=== PATIENT | female | born 2000 | race Caucasian/White ===

== ENCOUNTER 2019-03-18 14:41 | Emergency (ER) | payer MEDICAID, SELFPAY ==
[2019-03-18 14:44] VITALS: BP 145/55; PULSE 88; RESP 16; TEMP 36.3; O2SAT 99; BMI 18.8
--- NOTE | 2019-03-18 15:24 | US_ITS ---
STUDY: FIRST TRIMESTER OBSTETRICAL ULTRASOUND REASON FOR EXAM: Female, 18 years old. dating. LMP: 01/21/19 TECHNIQUE: Transvaginal TECHNICAL QUALITY: Adequate. PRIOR ULTRASOUND: None. FINDINGS: There is no demonstrated intrauterine gestational sac. There is no demonstrated yolk sac. The placenta is non-visualized. There is no demonstrated embryo ( pole). The estimated gestation age (EGA) by LMP is 8 weeks, 0 days. The uterus measures 7.5 x 4.6 x 3.3. There is no demonstrated uterine fibroid. The cervix is closed. Endometrium measures 1.2 cm. The right ovary measures 3.8 x 3.5 x 3.0 cm. There is a 2.1 cm cyst. The left ovary measures 3.1 x 2.4 x 1.7 cm. There is no left ovarian cyst. There is no visualized left adnexal mass or complex lesion. There is no fluid in the cul de sac. US/Transvaginal w/Preg US IMPRESSION: No sonographic evidence of intra or extrauterine gestation. Endometrium measures 1.2 cm. Simple right ovarian cyst No demonstrated free fluid Electronically Signed: David Vanegas MD at 16:51 EDT , Service support ,
[2019-03-18 16:30] LABS: hCG Titer Quant., Serum 333 mIU/mL (<9 non-preg)
--- NOTE | 2019-03-18 16:31 | ED.VISSUMM ---
- ER Visit Summary Date of Service: 03/18/19 Chief Complaint: History of Present Illness: The patient is a 18 F [facility] She reports that her last period was in January. She has never been previously. She denies any pain. No vaginal bleeding or discharge. States that she was sent here by [facility] to see how far along she is. Physical Examination: Vitals: Stable. Afebrile. General: Well-nourished and well-developed. Head: Normocephalic atraumatic. Neck: Supple, no lymphadenopathy. No JVD. Nontender. Cardiovascular: Regular rate and rhythm. No murmurs. Respiratory: No respiratory distress. Clear to auscultation bilaterally. Abdominal: Soft, nontender, nondistended, normal bowel sounds. No guarding, rebound, or peritoneal signs. Back: Nontender. Extremities: Nontender, no edema. Skin: Normal color, no rash. Neurologic: Alert and oriented ?3. Cranial nerves II through XII are intact. Normal strength and sensation. Psych: Normal affect. Test Results: Quant is 333. Clinical Impression(s) from Imaging Studies Obstetrics Ultrasound 03/18/19 15:24 IMPRESSION: No sonographic evidence of intra or extrauterine gestation. Endometrium measures 1.2 cm. Simple right ovarian cyst No demonstrated free fluid Electronically Signed: David Vanegas MD at 16:51 EDT , Service support , Emergency Department Course and Treatment: Patient refused pain or nausea medications. She is resting comfortably. Treatment Plan: The patient was discussed with Dr. Navarro. She will be discharged instructions to follow-up in 2 days for repeat quant. Return to the emergency department for any worsening symptoms. Disposition: To home in improved and stable condition. Impression: 1. Early . This note was generated with [employer] software. It may contain incorrect words, spelling, and punctuation that were not noted in review of the chart prior to signing ED Disposition - Plan for ED Patient: Instructions: ED Abdominal Pain Rule Out Ectopic Referrals: Skye Candelaria MD [STAFF PHYSICIAN] - 2 Days
[2019-03-18 17:26] VITALS: BP 111/74; PULSE 74; RESP 16; TEMP 37.2; O2SAT 100
== END 2019-03-18 17:26 | disposition home or self-care (01) ==
LOC: ED 15:58
PROVIDERS: Emergency Provider Emergency Medicine; Family Provider Pediatrics; PCP Pediatrics
DX: Z34.90 Encounter for supervision of normal pregnancy, unspecified, unspecified trimester (principal); N83.201 Unspecified ovarian cyst, right side
CPT/HCPCS: 76817; 84702; 99282

== ENCOUNTER → 2019-03-20 11:04 | Outpatient (CLI) | payer MEDICAID, SELFPAY ==
[2019-03-18 14:44] VITALS: BMI 18.8
[2019-03-20 11:52] LABS: hCG Titer Quant., Serum 673 mIU/mL (<9 non-preg)
== END ==
PROVIDERS: Family Provider Pediatrics; PCP Pediatrics; Referring Provider Obstetrics & Gynecology; Visit Provider Obstetrics & Gynecology
DX: O20.0 Threatened abortion (principal); Z3A.00 Weeks of gestation of pregnancy not specified
CPT/HCPCS: 36415; 84702

== ENCOUNTER → 2019-03-26 | Outpatient (CLI) | payer MEDICAID, SELFPAY ==
[2019-03-26 16:42] VITALS: BMI 18.8
[2019-03-26 18:19] LABS: hCG Titer Quant., Serum 6407 mIU/mL (<9 non-preg)
== END | disposition home or self-care (01) ==
LOC: LAB 17:12
PROVIDERS: Family Provider Pediatrics; PCP Pediatrics; Referring Provider Obstetrics & Gynecology; Visit Provider Obstetrics & Gynecology
DX: Z34.90 Encounter for supervision of normal pregnancy, unspecified, unspecified trimester (principal)
CPT/HCPCS: 36415; 84702

== ENCOUNTER 2021-03-02 17:17 | Emergency (ER) | payer MEDICAID, SELFPAY ==
[2019-03-26 16:42] VITALS: BMI 18.8
[2021-03-02 17:17] VITALS: BP 138/63; PULSE 80; RESP 16; TEMP 36.2; O2SAT 97; BMI 23.9
--- NOTE | 2021-03-02 17:23 | NURSING ---
NO OLD EKGS
--- NOTE | 2021-03-02 17:30 | EKG12_ITS ---
Test Reason : CHEST PAIN Blood Pressure : / mmHG Vent. Rate : 075 BPM Atrial Rate : 075 BPM P-R Int : 138 ms QRS Dur : 106 ms QT Int : 366 ms P-R-T Axes : 068 096 046 degrees QTc Int : 408 ms Normal sinus rhythm with sinus arrhythmia Rightward axis Incomplete right bundle branch block Borderline ECG Confirmed by TOMAS DOWELL, SYDNI ([id number]), editor map ADRY FLORES ([id number]) on 03/03/2021 12:55:11 PM Referred By: TERESA Confirmed By:SYDNI MARIN MD
--- NOTE | 2021-03-02 17:31 | ED.VISSUMM ---
- ER Visit Summary Date of Service: 03/02/21 Chief Complaint: [Chest pain ] History of Present Illness: The patient is a 20 F [presents to the emergency department with intermittent episodes of chest discomfort that started 3 months ago. Patient states that several times throughout the day she will feel like she cannot catch her breath like if there were a hose that was kinked in her chest. Patient states oftentimes symptoms are worse before she goes to bed at night. Oftentimes she feels like her heart is racing but she has not actually taken her pulse. She has had no syncopal episodes. She describes a pressure sensation to her chest like somebody's pushing down on her chest. Patient also complains of exertional dyspnea. She does state that she has been under a lot of stress but will not elaborate further. Patient denies any illicit drug use. She denies cocaine abuse. No recent travel or surgery. No history of PE or DVT. No family history of sudden cardiac . Patient denies recent illness or COVID-19 exposures. She has never been diagnosed with COVID-19.] Physical Examination: HEENT-PERRLA, EOMI. Cardiovascular-heart is regular rate and rhythm without murmur. No rubs or clicks noted. Lung exam-clear to auscultation bilaterally. No rales or wheezes noted. No tachypnea. No excess remote use retractions. Abdomen exam-soft and nontender to palpation. Normoactive bowel sounds. Extremities-intact x4 with normal pulses and normal strength noted. No edema.] Test Results: [EKG obtained arrival shows sinus rhythm with a ventricular rate of 75 bpm with no acute ST segment changes noted. CBC with differential was normal. Sed rate was 1. Troponin less than 0.015. Chemistries unremarkable. D-dimer is less than 0.27. hCG was negative. Chest x-ray 1 view obtained interpreted by myself as no acute disease process/normal. Radiologist in agreement.] Emergency Department Course and Treatment: [IV line established on arrival. Patient placed on a manager cardiac cath.] Treatment Plan: [This point etiology of patient's chest pain unclear although I suspect likely an anxiety component. I recommended follow-up with primary care physician assembler ping pong table for no doc. I will write her for as needed Ativan as needed. Advised to return if worsening pain, increasing shortness of breath, or condition should worsen anyway.] Disposition: [Discharged home in stable condition] Impression: [Chest pain-etiology uncertain Anxiety] This note was generated with [employer] dictation software. It may contain incorrect words, spelling, and punctuation that were not noted in review of the chart prior to signing ED Disposition - Plan for ED Patient: Referrals: NOT,DEFINED [NON-STAFF] -
[2021-03-02 17:53] LABS: Absolute Lymphocyte Count 2.68 X10^3/uL (0.83-4.51); Absolute Neutrophil Count 6.1 X10^3/uL (2.0-7.7); Basophil# 0.01 X10^3/uL; Basophil% 0.1 % (0-1); Eosinophil# 0.03 X10^3/uL; Eosinophils% 0.3 % (0-5); Hematocrit 45.7 % (37-47); Hemoglobin 15.4 g/dL (12.0-15.0); Lymphocyte # 2.68 X10^3/ul (4.0); Lymphocyte % 28.6 % (19-41); Mean Corp Hgb Conc 33.7 g/dL (32-36); Mean Corpuscular Hgb 30.5 pg (27.0-32.0); Mean Corpuscular Volume 90.5 fL (81-99); Mean Platelet Vol. 9.8 fl (6.2-12.0); Monocyte# 0.53 X10^3/uL; Monocyte% 5.7 % (0-10); NRBC Flagged by Analyzer 0 % (0-5); Neutrophil # 6.09 X10^3/uL (2.7-7.7); Platelet Count 263 K/mm3 (150-450); RBC Distribution Width CV 11.7 % (11.6-14.6); Red Blood Count 5.05 M/mm3 (4.2-5.4); White Blood Count 9.4 K/mm3 (4.4-11.0)
--- NOTE | 2021-03-02 18:02 | RAD_ITS ---
STUDY: X-RAY CHEST REASON FOR EXAM: Female, 20 years old. Chest pain. TECHNIQUE: Single AP portable view of the chest. COMPARISON: None. FINDINGS: The lungs are clear and expanded. There is no demonstrated pleural abnormality. Normal size heart. Normal mediastinum and valentin. Normal visualized pulmonary arteries. Normal visualized aortic arch and descending thoracic aorta. Normal visualized thoracic spine. Normal visualized ribs, clavicles, and shoulders. There is no demonstrated abnormality of the visualized soft tissue structures of the upper abdomen. RAD/Chest 1 View (Portable) IMPRESSION: Normal x-ray examination of the chest. Electronically Signed: Evaristo Simpson DO at 18:12 EDT Tel [phone], Service support ,
[2021-03-02 18:05] LABS: Erythrocyte Sedimentation Rate 1 mm/hr (0-30)
[2021-03-02 18:07] LABS: Internal QC Validated? YES +Cl - CLEAR BKGD; Pregnancy, Serum, hCG Quali. NEGATIVE Negative
[2021-03-02 18:08] LABS: Anion Gap 7 (5-15); BUN 9 mg/dL (7-18); BUN/Creat Ratio 10.3 RATIO (10-20); Calcium,Total 9.1 mg/dL (8.5-10.1); Chloride 102 mmol/L (98-107); Creatinine, Serum 0.88 mg/dL (0.55-1.02); D-Dimer Quantitative (DVT/PE) <= 0.27 FEU/ug/m (0.27-0.49); EST Glomerular Filtration Rate 86 mL/min (>60); Est Glom Filt Rate - Afr Amer 104 mL/min (>60); Estimated Creatinine Clearance 82.95 ml/min; Glucose 114 mg/dL (74-106); Potassium 3.2 mmol/L (3.5-5.1); Sodium Level 136 mmol/L (136-145)
--- NOTE | 2021-03-02 18:22 | ED.DEP ---
ED Disposition - Plan for ED Patient: Instructions: ED Chest Pain, Uncertain Cause, ED Panic Attack, ED Anxiety Reaction Prescriptions: Lorazepam [Ativan] 1 mg PO TID PRN #10 tab PRN Reason: Anxiety Prescription Printed Referrals: NOT,DEFINED [NON-STAFF] - Jose Antonio Ibrahim MD [STAFF PHYSICIAN] - 3-5 Days
[2021-03-02 18:37] VITALS: BP 104/68; PULSE 52; RESP 16; O2SAT 99
== END 2021-03-02 18:38 | disposition home or self-care (01) ==
PROVIDERS: Emergency Provider Emergency Medicine
DX: R07.89 Other chest pain (principal); R06.09 Other forms of dyspnea; F41.9 Anxiety disorder, unspecified
CPT/HCPCS: 71045; 80048; 84484; 84703; 85025; 85379; 85652; 93005; 99284; A4216

== ENCOUNTER → 2021-08-29 11:42 | Outpatient (CLI) | payer MEDICAID, SELFPAY ==
[2021-08-29 15:32] LABS: Absolute Lymphocyte Count 2.33 X10^3/uL (0.83-4.51); Basophil# 0.01 X10^3/uL; Basophil% 0.1 % (0-1); Eosinophil# 0.04 X10^3/uL; Eosinophils% 0.6 % (0-5); Hematocrit 43.9 % (37-47); Hemoglobin 14.5 g/dL (12.0-15.0); Lymphocyte # 2.33 X10^3/ul (0.83-4.51); Lymphocyte % 33.8 % (19-41); Mean Corpuscular Hgb 30.1 pg (27.0-32.0); Mean Corpuscular Volume 91.1 fL (81-99); Mean Platelet Vol. 10.1 fl (6.2-12.0); Monocyte# 0.46 X10^3/uL; Monocyte% 6.7 % (0-10); NRBC Flagged by Analyzer 0 % (0-5); Neutrophil # 4.04 X10^3/uL (2.7-7.7); Neutrophil % 58.5 % (47-70); Platelet Count 313 K/mm3 (150-450); Red Blood Count 4.82 M/mm3 (4.2-5.4); White Blood Count 6.9 K/mm3 (4.4-11.0)
[2021-08-29 16:05] LABS: Vitamin D,25 Hydroxy 43.2 ng/mL
[2021-08-29 16:10] LABS: AST(SGOT) 20 U/L (15-37); Alanine Aminotransfer ALT/SGPT 30 U/L (13-56); Albumin, Serum 3.8 g/dL (3.2-5.0); Alkaline Phosphatase 55 U/L (45-117); Anion Gap 11 (5-15); BUN 10 mg/dL (7-18); BUN/Creat Ratio 13.4 RATIO (10-20); Calcium,Total 9.2 mg/dL (8.5-10.1); Chloride 106 mmol/L (98-107); Creatinine, Serum 0.75 mg/dL (0.55-1.02); EST Glomerular Filtration Rate 102 mL/min (>60); Est Glom Filt Rate - Afr Amer 124 mL/min (>60); Free T3 3.3 pg/mL (2.18-3.98); Globulin 3.9 g/dL (2.2-4.2); Glucose 84 mg/dL (74-106); Protein, Total 7.7 g/dL (6.4-8.2); Sodium Level 141 mmol/L (136-145); T4 Free Direct 0.93 ng/dL (0.76-1.46); Thyroid Stim Hormone (TSH) 2.57 uIU/mL (0.358-3.74)
== END ==
PROVIDERS: PCP Internal Medicine; Referring Provider Internal Medicine; Visit Provider Internal Medicine
DX: F41.9 Anxiety disorder, unspecified (principal)
CPT/HCPCS: 36415; 80053; 82306; 84439; 84443; 84481; 85025

== ENCOUNTER 2022-04-06 15:30 | Outpatient (RCR) | payer MEDICAID, SELFPAY ==
--- NOTE | 2022-03-26 16:01 | HP.PTEVAL_ITS ---
Patient's Visit Information SMITH LINDSEY is a 21 year old F referred to Physical Therapy by Dr. Imelda Gaviria DC with a diagnosis of BACK PAIN. Date of Evaluation: 03/26/22 Physical Therapist: Lilliana Vale PT, Cert MDT - Visit Plan Frequency: 2-3x /Week Duration: 4-6 Weeks Plan: US, E-STIM WITH MH, STM, TX, POSTURE CORRECTION/STRENGTHENING, INSTRUCTION IN APPROPRIATE BODY MECHANICS AND ACTIVITY MODIFICATIONS. CORINNE UE ROM, STRETCHING AND STRENGTHENING. HEP INSTRUCTION - Subjective Diagnosis: CERVICALGIA (DECREASED LORDOSIS). Work/Leisure: BABYSITTING 3-5 DAYS A WEEK FOR A 1 YEAR OLD AND SOMETIMES A 5 YEAR OLD ALSO. DENTAL ASSISTING DEGREE AND WORKING IN [employer] ABOUT 4 YEARS - STOPPED ABOUT 8 MONTHS AGO. SOCIAL - LIVES WITH BOYFRIEND. Disability: NO. Present symptoms: NECK PAIN. UPPER BACK PAIN. DENIES CORINNE UE SX'S. Present since: ABOUT 6 MONTHS AGO. Pain Scale: Worst - 7/10 Least - 4/10. Currently: 10. Commenced as a result of: NO APPARENT REASON. Symptoms at onset: UPPER BACK AND NECK. Worse: SLEEPING, LEANING ON ARM IN SITTING, DRIVING, SLOUCHING, LIFTING WEIGHTS SOMEWHAT, LOOKING DOWN. Better: SIT UP STRAIGHT, HEATING PAD IN CROCK OF NECK, MUSCLE RELAXERS, MASSAGING IT. Disturbed sleep: YES. Previous history/Previous treatment: ABOUT 2 YEARS AGO NECK AND UPPER BACK PAIN BUT GOT BETTER WITH MASSAGE - RESOLVED AND CAME BACK WORSE 6 MONTHS AGO. This episode: PCP - M. RELAXERS. CHIROPRACTOR X 4-5 VISITS - TEMPORARY RELIEF BUT IT ALWAYS COMES BACK. Dizziness: SOMETIMES WITH HEADACHES. Tinnitis: NO. Nausea: SOMETIMES. Shortness of Breath: YES - INTERMITTENT - CHRONIC - DX'D WITH ANXIETY BUT NOT ON AXIETY MEDS. Difficulty Swollowing: NO. Gait: NORMAL. Accidents: NO. Unexplained weight loss: NO. Imaging: X-RAYS AT THE CH[facility]OPRA[facility] - GOOD BUT NECK IS STARTING TO CURVE AND COULD TURN INTO SCOLIOSIS PER PATIENT REPORT. NO MRI. PMH/Recent major surgery: ANXIETY. - Objective Sitting Posture/Standing Posture: POOR. FH. RS'S. Active Correction of posture: BETTER. Other Observations: INDEP GAIT AND TRANSFERS. Sensory deficit: CORINNE UE LIGHT TOUCH SENSATION GROSSLY INTACT AND SYMMETRICAL. ROM deficit: CORINNE UE'S WNL. Motor deficit: CORINNE UE'S WNL. Dural Signs: NEGATIVE CORINNE UE'S. Cervical Mvmt Loss: Flex: NIL. Pro: NIL. Ext: MIN. Ret: MIN. RSB: MIN. LSB: NIL. R Rot: MIN. L Rot: NIL. Postural strength: POOR. Palpation: TENDERNESS CORINNE UPPER THORACIC AND CERVICAL PARASPINALS AND TRAPS. OTHER: CERVICAL DISTRACTION TESTING - RESULTS IN TEMPORARY PAIN RELIEF. TREATMENT: NEUROMUSCULAR REEDUCATION - RETRAINING OF MVMT AND POSTURE FOR SITTING, LYING AND STANDING ACTIVITIES. GENTLE MANUAL DISTRACTION AND OCCIPITAL RELEASE IN SUPINE. - Balance/Special Test Scores Oswestry Neck Score: 14 - Goals Goal 1:: DECREASE C/O NECK PAIN Goal Time Frame: 4-6 Weeks Goal 2:: IMPROVE LIFTING, READING, SLEEP, DRIVING AND RECREATIONAL FUNCTION Goal Time Frame: 4-6 Weeks Goal 3:: INSTRUCT IN PROPHLAXIS Goal Time Frame: 4-6 Weeks - Anticipated Interventions Patient/Client Instruction: Educate patient on: Condition, Plan of Care, Risk Factors For the Purpose of:: To improve self management Therapeutic Exercise to Include: Strength training, Body mechanics, Postural training, Flexibilty training, Neuromotor development, Scapular Strength/Stabilization For the Purpose of:: To decrease pain, To improve muscle performance and motor function, To increase tolerance to activity/condition/position, To improve ability of physical actions for home/community/work/leisure Manual Therapy Techniques to Include: Soft tissue mobilization For the Purpose of:: To decrease pain, To improve nutrient delivery to tissue TENS: Yes IF ES: Yes Cryotherapy (ice pack, ice massage): Yes Thermo therapy (hot pack): Yes Ultrasound (thermal/non thermal): Yes Intermittent cervical traction: Yes For the Purpose of:: To decrease pain, To decrease swelling/inflammation, To improve nutrient delivery to tissue Thank you for the opportunity to evaluate your patient. For Medicare and Medicare HMO plans, please review the plan of care and approve it. It will need to be FAXED BACK to us at [phone] for Medicare purposes. For Medicare only, by signing this I certify the plan of care. Please let me know if there are questions or concerns regarding this plan of care. Physician Signature: Date:
--- NOTE | 2022-09-12 10:46 | HP.PT.NRP ---
SMITH LINDSEY was seen in my office for initial evaluation on 03/26/22. The following Plan of Care was established for this patient: Initial Frequency: 2-3x /Week Initial Duration: 4-6 Weeks Patient/Client Instruction: Educate patient on: Condition, Plan of Care, Risk Factors For the Purpose of:: To improve self management Therapeutic Exercise to Include: Strength training, Body mechanics, Postural training, Flexibilty training, Neuromotor development, Scapular Strength/Stabilization For the Purpose of:: To decrease pain, To improve muscle performance and motor function, To increase tolerance to activity/condition/position, To improve ability of physical actions for home/community/work/leisure Manual Therapy Techniques to Include: Soft tissue mobilization For the Purpose of:: To decrease pain, To improve nutrient delivery to tissue TENS: Yes IF ES: Yes Cryotherapy (ice pack, ice massage): Yes Thermo therapy (hot pack): Yes Ultrasound (thermal/non thermal): Yes Intermittent cervical traction: Yes For the Purpose of:: To decrease pain, To decrease swelling/inflammation, To improve nutrient delivery to tissue This patient was last seen in our office 04/06/22. Pertinent comments regarding their Physical therapy will appear below: This patient has not returned to Physical Therapy and is appropriate to return to MD for further follow-up as needed. At this point I will be discontinuing this patient from physical therapy. I would be happy to see this patient again in the future if found appropriate by the physician. Thank you! Lilliana Vale, PT, Cert MDT Balance/Gait/Functional tests - Balance/Special Test Scores Oswestry Neck Score: 14
== END 2022-04-06 19:00 | disposition home or self-care (01) ==
LOC: PT 15:30
PROVIDERS: PCP Internal Medicine; Referring Provider Chiropractor; Visit Provider Chiropractor
DX: M54.2 Cervicalgia (principal)
CPT/HCPCS: 97035; 97110; 97112; 97140; 97161

== ENCOUNTER → 2022-09-28 | Outpatient (CLI) | payer MEDICAID, SELFPAY ==
[2022-09-28 16:08] LABS: Absolute Lymphocyte Count 3.54 X10^3/uL (0.83-4.51); Absolute Neutrophil Count 6.1 X10^3/uL (2.0-7.7); Basophil# 0.02 X10^3/uL; Basophil% 0.2 % (0-1); Eosinophil# 0.09 X10^3/uL; Eosinophils% 0.8 % (0-5); Erythrocyte Sedimentation Rate 10 mm/hr (0-30); Hemoglobin 13.9 g/dL (12.0-15.0); Lymphocyte # 3.54 X10^3/ul (0.83-4.51); Lymphocyte % 32.9 % (19-41); Mean Corp Hgb Conc 33.1 g/dL (32-36); Mean Corpuscular Hgb 29.4 pg (27.0-32.0); Mean Platelet Vol. 9.4 fl (6.2-12.0); Monocyte# 0.92 X10^3/uL; Monocyte% 8.6 % (0-10); NRBC Flagged by Analyzer 0 % (0-5); Neutrophil # 6.13 X10^3/uL (2.7-7.7); Neutrophil % 56.9 % (47-70); Platelet Count 350 K/mm3 (150-450); RBC Distribution Width CV 11.4 % (11.6-14.6); RBC Distribution Width SD 36.5 fl (35.1-43.9); Red Blood Count 4.72 M/mm3 (4.2-5.4); White Blood Count 10.8 K/mm3 (4.4-11.0)
[2022-09-28 16:43] LABS: ALB/GLOB Ratio 1.1 RATIO (0.9-2.4); AST(SGOT) 33 U/L (15-37); Alanine Aminotransfer ALT/SGPT 54 U/L (13-56); Albumin, Serum 4.1 g/dL (3.2-5.0); Alkaline Phosphatase 73 U/L (45-117); Anion Gap 8 (5-15); BUN 9 mg/dL (7-18); BUN/Creat Ratio 12.6 RATIO (10-20); CRP < 2.90 mg/L (0.0-3.0); Calcium,Total 9.4 mg/dL (8.5-10.1); Chloride 103 mmol/L (98-107); Creatinine, Serum 0.72 mg/dL (0.55-1.02); EST Glomerular Filtration Rate 106 mL/min (>60); Est Glom Filt Rate - Afr Amer 129 mL/min (>60); Globulin 3.9 g/dL (2.2-4.2); Glucose 84 mg/dL (74-106); LDH 203 U/L (84-246); Potassium 3.6 mmol/L (3.5-5.1); Sodium Level 137 mmol/L (136-145); T4 Free Direct 0.97 ng/dL (0.76-1.46)
[2022-09-30 14:07] LABS: Anti-Centromere B Ab <0.2 AI (0.0-0.9); Anti-Chromatin <0.2 AI (0.0-0.9); Anti-Jo <0.2 AI (0.0-0.9); Anti-Scleroderma-70 AB <0.2 AI (0.0-0.9); RNP Ab <0.2 AI (0.0-0.9); SJOGREN'S Anti-SS-A test < 0.2 AI (0.0-0.9); SJOGREN'S Anti-SS-B test < 0.2 AI (0.0-0.9); Smith Ab <0.2 AI (0.0-0.9)
[2022-10-01 16:09] LABS: Endomysial Antibody IgA Negative (Negative)
[2022-10-02 18:13] LABS: Immunoglobulin A 128 mg/dL (87-352); t-Transglutaminase IgA <2 U/mL (0-3)
[2022-10-02 18:33] LABS: Anti-dsDNA Ab 1 IU/mL (0-9)
[2022-10-08 11:07] LABS: Albumin 3.8 g/dL (2.9-4.4); Alpha-1-Globulins 0.3 g/dL (0.0-0.4); Alpha-2-Globulins 0.8 g/dL (0.4-1.0); Cytoplasmic Ab (C-ANCA) <1:20 titer (Neg:<1:20); Gamma Globulin 1.3 g/dL (0.4-1.8); Immunoglobulin A 137 mg/dL (87-352); Immunoglobulin G 1227 mg/dL (586-1602); Immunoglobulin M 91 mg/dL (26-217); PROEL- TOTAL PROTEIN 7.2 g/dL (6.0-8.5)
[2022-10-11 10:23] LABS: Gastrin, Serum < 10 pg/mL (0-115); Immunoglobulin E 18 IU/mL (6-495); Perinuclear Ab (P-ANCA) <1:20 titer (Neg:<1:20)
== END | disposition home or self-care (01) ==
PROVIDERS: PCP Internal Medicine; Visit Provider Internal Medicine Gastroenterology
DX: K31.9 Disease of stomach and duodenum, unspecified (principal); R10.13 Epigastric pain
CPT/HCPCS: 36415; 80053; 82784; 82785; 82941; 83516; 83615; 84165; 84439; 84443; 84481; 85025; 85652; 86140; 86225; 86235; 86255; 86256; 86334

== ENCOUNTER → 2022-10-01 | Outpatient (CLI) | payer MEDICAID, SELFPAY ==
[2022-10-06 21:01] LABS: Calprotectin, Stool 30 ug/g (0-120); Fats, Neutral Normal (.); Fats, Total Increased (.)
[2022-10-08 16:08] LABS: Dopamine, UR 227 ug/L (Undefined); Epinephrine, 24Ur 5 ug/24 hr (0-20); Epinephrine, Ur 3 ug/L (Undefined); Norepinephrine, 24Ur 47 ug/24 hr (0-135); Norepinephrine, Ur 26 ug/L (Undefined)
[2022-10-12 14:22] LABS: Dopamine, 24Ur 409 ug/24 hr (0-510); Pancreatic Elastase, Fecal 355 (>200)
== END | disposition home or self-care (01) ==
LOC: LABSPEC 15:23
PROVIDERS: PCP Internal Medicine; Visit Provider Internal Medicine Gastroenterology
DX: K31.9 Disease of stomach and duodenum, unspecified (principal); R10.13 Epigastric pain; K58.9 Irritable bowel syndrome, unspecified
CPT/HCPCS: 87493; 81050; 82384; 82653; 82705; 83630; 83993; 87177; 87209; 87329; 87506

== ENCOUNTER 2022-11-02 16:39 | Outpatient (CLI) | payer MEDICAID, SELFPAY ==
[2022-11-02 17:32] LABS: hCG Titer Quant., Serum < 1 mIU/mL (1-3)
== END 2022-11-02 23:59 | disposition home or self-care (01) ==
LOC: LAB 16:41
PROVIDERS: PCP Internal Medicine; Visit Provider Obstetrics & Gynecology
DX: N91.2 Amenorrhea, unspecified (principal)
CPT/HCPCS: 36415; 84702

== ENCOUNTER 2022-11-28 18:08 | Emergency (ER) | payer MEDICAID, SELFPAY ==
[2022-11-28 18:10] VITALS: BP 105/66; PULSE 100; RESP 100; TEMP 36.6; O2SAT 19; BMI 25.7
[2022-11-28 19:47] VITALS: O2SAT 100
[2022-11-28 20:47] VITALS: PULSE 112; RESP 24; O2SAT 97
--- NOTE | 2022-11-28 21:07 | EKG12_ITS ---
Test Reason : DYSRHYTHMIA Blood Pressure : / mmHG Vent. Rate : 086 BPM Atrial Rate : 086 BPM P-R Int : 140 ms QRS Dur : 106 ms QT Int : 388 ms P-R-T Axes : 062 084 038 degrees QTc Int : 464 ms Normal sinus rhythm with sinus arrhythmia Normal ECG Confirmed by TOMAS DOWELL, SYDNI ([id number]), supervising editor trailer ADRY FLORES ([id number]) on 12/04/2022 12:24:56 PM Referred By: LUNA Confirmed By:SYDNI MARIN MD
--- NOTE | 2022-11-28 21:13 | ED.VIS.DYS ---
HPI History of Present Illness Chief Complaint: Shortness of Breath Informant: patient Onset/Context/Timing Onset: Today Context: sudden Timing: Intermittent Worsened by: - (Anxiety) Relieved by: Nothing Associated Symptoms cough, subjective and chills; Negative for rhinorrhea, post nasal drip, ear pain, fever, sore throat or sweats Chest Pain: Positive for None Narrative Narrative: Patient presents with shortness of breath, nausea, and vomiting that began today. Patient states it began rather suddenly. Patient states that was constant. Patient states she was feeling anxious when this began. Patient states that her jaw locked up and became stiff. Patient states she is feeling better currently. Patient admits to slight cough. Patient admits to some nausea and vomiting with this. Patient denies any diarrhea. Patient denies any hematemesis or coffee-ground emesis. Patient denies any chest pain. Patient mitts to some subjective chills. Patient admits to some right-sided neck pain. PFSH PFS Medical History Breast lump Home Medications cyclobenzaprine 5 mg tablet 5 mg PO TID PRN muscle spasm #20 tabs 11/14/21 [Rx Last Taken Unknown] ondansetron 4 mg disintegrating tablet 4 mg PO Q6H PRN nausea and vomiting #90 tabs 11/28/22 [Rx Last Taken Unknown] Allergy/AdvReac Type Severity Reaction Status Date / Time No Known Allergies Allergy Verified 11/28/22 18:13 Family History Other Anxiety Depression Hypertension Surgical History No history of previous surgery Social History Smoking Status: Never smoker alcohol intake: never substance use type: does not use caffeine: Yes what type of physical activity do you participate in: walking seatbelt use: always do you feel safe at home: Yes additional social history: Works at [employer] ED Constitutional Constitutional ED: Reports chills; Denies fever(s) Eyes Eyes: Denies blurry vision or change in vision ENT ENT ED: Denies rhinorrhea or sore throat Cardiovascular Cardiovascular: Denies chest pain or palpitations Respiratory/Chest Respiratory/Chest: Reports cough and dyspnea Gastrointestinal Gastrointestinal: Reports nausea and vomiting Genitourinary Genitourinary ED: Denies dysuria or hematuria Musculoskeletal Musculoskeletal: Reports neck pain; Denies back pain Integumentary Denies abscess or rash Neurologic Neurologic: Denies headache(s) or weakness Allergic/Immunologic Allergic/Immunologic ED: Denies mouth swelling or urticaria EXAM Physical Exam Const Vital Signs: 11/28/22 18:10 11/28/22 19:47 11/28/22 20:47 Temperature 97.8 F Temperature Source Temporal Pulse Rate 100 112 H Respiratory Rate 100 H 24 H Respiratory Effort Normal Non-Labored Respiratory Depth Normal Respiratory Pattern Normal Blood Pressure 105/66 Blood Pressure Mean 79 Pulse Ox 19 97 Oxygen Delivery Method Room Air Room Air Room Air Positive well nourished and well developed General Appearance ED: well developed and NAD HEENT Reports moist mucous membranes Neck supple and no JVD Resp normal respiratory effort and clear to auscultation bilaterally Cardio regular rate, regular rhythm and no murmurs GI normal to inspection, nondistended, normoactive bowel sounds and non-tender Palpation: soft Extremity normal to inspection General Extremety ED: Negative for edema or tenderness General Extremity: Negative for edema Neuro oriented x3, CN's II-XII intact bilaterally and no sensory deficits noted Sensorium / Orientation: alert Motor Exam: strength 5/5 throughout Psych mental status grossly normal Skin no rashes or lesions noted MDM MDM MDM Narrative Medical decision making narrative: EKG was obtained. On my interpretation, it showed a normal sinus rhythm with a rate of 86. [place] interval, QRS interval, and QTc intervals were all normal. Van was normal. There are no acute ST or T wave changes. CBC shows a leukocytosis of 20.9. This is most likely related to her . Comprehensive metabolic profile was essentially within normal limits with the exception of a potassium of 3.2. Urinalysis does not show any evidence of urinary tract infection or hematuria. Patient was having muscle spasms of her neck consistent with torticollis. Patient was able to flex her neck and look down during this episode. Patient was given a dose of Flexeril here. Patient was also given a dose of potassium. Patient was instructed to follow-up with her primary care physician in 5 to 7 days. Patient was instructed to use ice to her neck. Patient was instructed return if worse in any way. Patient understood and was agreeable with the plan. All questions were answered. Lab Data Labs: Laboratory Results - last 24 hr 11/28/22 11/28/22 11/28/22 21:33 21:33 21:39 WBC 20.9 H RBC 4.52 Hgb 14.0 Hct 39.6 MCV 87.6 MCH 31.0 MCHC 35.4 RDW Std Deviation 38.2 RDW Coeff of Dorota 11.9 Plt Count 283 MPV 9.4 Immature Gran % (Auto) 0.400 Neut % (Auto) 89.4 H Lymph % (Auto) 6.6 L [place] % (Auto) 3.5 Eos % (Auto) 0.0 Baso % (Auto) 0.1 Absolute Neuts (auto) 18.7 H Absolute Lymphs (auto) 1.39 Nucleated RBC % 0 Sodium 135 L Potassium 3.2 L Chloride 102 Carbon Dioxide 25.0 Anion Gap 8 BUN 8 Creatinine 0.68 Estim Creat Clear Calc 105.53 Est GFR (MDRD) Af Amer 136 Est GFR (MDRD) Non-Af 113 BUN/Creatinine Ratio 11.7 Glucose 116 H Calcium 8.9 Total Bilirubin 0.70 AST 21 ALT 29 Alkaline Phosphatase 46 Total Protein 7.4 Albumin 3.9 Globulin 3.5 Albumin/Globulin Ratio 1.1 Urine Color Yellow Urine Clarity Clear Urine pH 6.0 Ur Specific [place] 1.025 Urine Protein 15 H Urine Glucose (UA) Normal Urine Ketones 5 H Urine Occult Blood 10 H Urine Nitrite Negative Urine Bilirubin Negative Urine Urobilinogen 1 H Ur Leukocyte Esterase Negative Urine RBC 0 SEEN Urine WBC 0 SEEN Ur Squamous Epith Cells 0-5 SEEN Urine Bacteria 1+ Urine Mucus 0 SEEN EKG Initial EKG: Attestation: I personally reviewed and interpreted this EKG as follows: Interpretation: Sinus Rhythm (86) and No Acute Injury Pattern Prior EKG tracings: available for review Prior: Unchanged (03/02/2021) Discharge Plan Triage Chief Complaint: Shortness of Breath ED Provider: Jose Antonio Cobian Dx/Rx/DC Orders Clinical Impression: Acute torticollis, Neck pain, Anxiety Instructions: ED Neck Pain Prescriptions: No Action cyclobenzaprine 5 mg tablet 5 mg PO TID PRN (Reason: muscle spasm) Qty: 20 0RF ondansetron 4 mg tablet,disintegrating 4 mg PO Q6H PRN (Reason: nausea and vomiting) Qty: 90 0RF Primary Care Provider: Indira Mota Referrals: Indira Mota MD [Primary Care Provider] - 5-7 Days Disposition Disposition: Home, Self Care
[2022-11-28] MEDS: 0.9% Normal Saline 1,000 ML 1000 ML IV (21:34)
[2022-11-28 21:55] LABS: Mucous, Urine 0 SEEN /hpf (<or=2+); Red Blood Cells-Urine 0 SEEN /hpf (0-5); White Blood Cells 0 SEEN /hpf (0-5)
[2022-11-28 21:59] LABS: Absolute Lymphocyte Count 1.39 X10^3/uL (0.83-4.51); Absolute Neutrophil Count 18.7 X10^3/uL (2.0-7.7); Basophil# 0.02 X10^3/uL; Basophil% 0.1 % (0-1); Eosinophil# 0.01 X10^3/uL; Hematocrit 39.6 % (37-47); Lymphocyte # 1.39 X10^3/ul (0.83-4.51); Lymphocyte % 6.6 % (19-41); Mean Corp Hgb Conc 35.4 g/dL (32-36); Mean Corpuscular Volume 87.6 fL (81-99); Mean Platelet Vol. 9.4 fl (6.2-12.0); Monocyte# 0.74 X10^3/uL; Monocyte% 3.5 % (0-10); NRBC Flagged by Analyzer 0 % (0-5); Neutrophil # 18.69 X10^3/uL (2.7-7.7); Neutrophil % 89.4 % (47-70); Platelet Count 283 K/mm3 (150-450); RBC Distribution Width CV 11.9 % (11.6-14.6); RBC Distribution Width SD 38.2 fl (35.1-43.9); Red Blood Count 4.52 M/mm3 (4.2-5.4); White Blood Count 20.9 K/mm3 (4.4-11.0)
[2022-11-28 22:05] LABS: Color, Urine Yellow (Yellow); Glucose, Dipstick Normal (Normal); Ketone-Dipstick 5 mg/dl (Negative); Leukocyte Esterase-Dipstick Negative /ul (Negative); Nitrite-Dipstick Negative (Negative); Occult Blood-Urine 10 /ul (Negative); Protein-Dipstick 15 mg/dl (Negative); Specific Gravity, Urine 1.025 (1.002-1.030); Urine Bilirubin Dipstick Negative (Negative); Urine Clarity Clear (Clear); Urine Urobilinogen 1 mg/dl (Normal)
[2022-11-28 22:16] LABS: ALB/GLOB Ratio 1.1 RATIO (0.9-2.4); AST(SGOT) 21 U/L (15-37); Alanine Aminotransfer ALT/SGPT 29 U/L (13-56); Albumin, Serum 3.9 g/dL (3.2-5.0); Alkaline Phosphatase 46 U/L (45-117); Anion Gap 8 (5-15); BUN 8 mg/dL (7-18); BUN/Creat Ratio 11.7 RATIO (10-20); Calcium,Total 8.9 mg/dL (8.5-10.1); Chloride 102 mmol/L (98-107); Creatinine, Serum 0.68 mg/dL (0.55-1.02); EST Glomerular Filtration Rate 113 mL/min (>60); Est Glom Filt Rate - Afr Amer 136 mL/min (>60); Estimated Creatinine Clearance 105.53 ml/min; Globulin 3.5 g/dL (2.2-4.2); Glucose 116 mg/dL (74-106); Potassium 3.2 mmol/L (3.5-5.1); Protein, Total 7.4 g/dL (6.4-8.2); Sodium Level 135 mmol/L (136-145)
[2022-11-28 22:18] LABS: Bacteria 1+ /hpf (None Seen); Squamous Epithelial Cells - UA 0-5 SEEN /hpf (5-10)
[2022-11-28] MEDS: cycloBENZAPRine HCl 10 MG Tablet PO (22:27)
[2022-11-28] MEDS: Potassium Chloride Oral Tablet 20 MEQ 40 MEQ PO (23:10)
== END 2022-11-28 23:16 | disposition home or self-care (01) ==
PROVIDERS: Emergency Provider Emergency Medicine; PCP Internal Medicine; Visit Provider Emergency Medicine
DX: M43.6 Torticollis (principal); F41.9 Anxiety disorder, unspecified; R11.2 Nausea with vomiting, unspecified
CPT/HCPCS: 80053; 81001; 85025; 93005; 96360; 96361; 99284; J7030; A4216

== ENCOUNTER → 2022-12-17 | Outpatient (CLI) | payer MEDICAID, SELFPAY ==
[2022-12-19 22:06] LABS: Chlamydia By Nucleic Acid AMP Negative (Negative)
[2022-12-19 22:20] LABS: Gonococcus By Nucleic Acid AMP Negative (Negative)
[2022-12-24 18:36] LABS: HPV Reflexed? NOT INDICATED
== END | disposition home or self-care (01) ==
LOC: LABSPEC 15:36
PROVIDERS: PCP Internal Medicine; Referring Provider Obstetrics & Gynecology; Visit Provider Obstetrics & Gynecology
DX: Z34.90 Encounter for supervision of normal pregnancy, unspecified, unspecified trimester (principal)
CPT/HCPCS: 87086; 87088; 87491; 87591; 88175; G0145

== ENCOUNTER → 2022-12-25 | Outpatient (CLI) | payer MEDICAID, SELFPAY ==
[2022-12-25 16:04] LABS: NATERA MAILED SPECIMEN
[2022-12-25 16:23] LABS: Absolute Lymphocyte Count 2.51 X10^3/uL (0.83-4.51); Absolute Neutrophil Count 5.4 X10^3/uL (2.0-7.7); Basophil# 0.01 X10^3/uL; Basophil% 0.1 % (0-1); Eosinophil# 0.07 X10^3/uL; Eosinophils% 0.8 % (0-5); Hematocrit 40.9 % (37-47); Hemoglobin 13.5 g/dL (12.0-15.0); Lymphocyte # 2.51 X10^3/ul (0.83-4.51); Lymphocyte % 28.9 % (19-41); Mean Corpuscular Hgb 29.8 pg (27.0-32.0); Mean Corpuscular Volume 90.3 fL (81-99); Mean Platelet Vol. 9.8 fl (6.2-12.0); Monocyte# 0.65 X10^3/uL; Monocyte% 7.5 % (0-10); NRBC Flagged by Analyzer 0 % (0-5); Neutrophil # 5.43 X10^3/uL (2.7-7.7); Neutrophil % 62.4 % (47-70); Platelet Count 311 K/mm3 (150-450); RBC Distribution Width CV 12.3 % (11.6-14.6); RBC Distribution Width SD 40.4 fl (35.1-43.9); Red Blood Count 4.53 M/mm3 (4.2-5.4); White Blood Count 8.7 K/mm3 (4.4-11.0)
[2022-12-25 17:41] LABS: HIV - WCH Non-Reactive (Nonreactive); Hepatitis B Surface Antigen Non-Reactive (Nonreactive); Hepatitis C Antibody Non-Reactive (Nonreactive); Rubella IgG Reactive (Nonreactive); Syphilis Antibodies Non-reactive
== END | disposition home or self-care (01) ==
LOC: LAB 14:56
PROVIDERS: PCP Internal Medicine; Visit Provider Obstetrics & Gynecology
DX: Z34.90 Encounter for supervision of normal pregnancy, unspecified, unspecified trimester (principal)
CPT/HCPCS: 36415; 85025; 86703; 86762; 86780; 86803; 86850; 86900; 86901; 87340

== ENCOUNTER 2023-04-26 22:00 | Outpatient (CLI) | payer MEDICAID, SELFPAY ==
[2023-04-26 22:24] VITALS: PULSE 99; O2SAT 97
[2023-04-26 22:29] VITALS: PULSE 91; O2SAT 97
[2023-04-26 22:34] VITALS: BP 117/71; PULSE 87
[2023-04-26 22:39] VITALS: BMI 28.1
[2023-04-26] MEDS: Ondansetron 4 MG/2 ML Vial IV (23:01)
[2023-04-26] MEDS: Lactated Ringers 1,000 ML 999 ML IV (23:01)
--- NOTE | 2023-04-27 00:15 | OB.TRI.HP_ITS ---
HPI - General General Date of Service: 04/26/23 Chief Complaint: nausea and vomiting HPI Narrative SMITH LINDSEY, is a 22 F who presents at 27+6 with nausea, vomiting, diarrhea following administration of celexa 3 days ago. less movement than previously, sent to for IV hydration, zofran and monitoring. denies contractions, lof, vb. Maternal Data Information SOLANGE Calculator Estimated Delivery Date Method Current WG Current Estimate 07/21/23 LMP (Certain) 27w 6d PFSH PFSH Medical History Breast lump Family history of breast cyst HTN (hypertension) Hx of one miscarriage Home Medications spring [place] 1 tab PO DAILY 12/13/22 [History Last Taken 04/26/23 08:00 1] Allergy/AdvReac Type Severity Reaction Status Date / Time No Known Allergies Allergy Verified 04/26/23 22:42 Family History Mother FH: multiple miscarriages or stillbirths 2 MISCARRIAGES Grandmother FH: multiple miscarriages or stillbirths MATERNAL Other Anxiety Depression Hypertension Surgical History History of elective No history of previous surgery Social History adopted: No household members: significant other current occupational status: unemployed pets and animals: Yes pets and animals: dog(s) history of recent travel: No sexually active: Yes Smoking Status: Never smoker alcohol intake: never substance use type: does not use well-balanced diet: daily or most days caffeine: Yes eating out: rarely or never during the past year weight has: remained stable what type of physical activity do you participate in: none and walking margoth/synagogue: None seatbelt use: always do you feel safe at home: Yes additional social history: BF Jose- Jesse History 3 Elective abortions 1 Hx Para 0 Spontaneous abortions 1 Hx # Term Pregnancies Ectopic pregnancies Hx # Pregnancies Multiple births # of living children 0 Visit Details Expected Delivery Route/Plan Labor Preferences- CB/BF classes: [] labor support person: [] labor intervention preferences: [] pain management options preferred: [] cut cord/dad catch: [] : [] PP control planned: [] discussed possible routes of delivery and associated risks: [] special requests: [] Plans Covid status: discussed Flu vaccine: discussed Tdap vaccine: [] Rhogam: [] LARC form signed: [] Problem list reviewed and updated with the most current plan of care details and appropriate orders placed. Relevant counseling for the gestational age provided. Continue routine care and follow up unless otherwise noted in visit notes/problem list details OB Flowsheet Initial Weight: Not Recorded Date -?-?-?-?-?-?-?-?-?-?-?-?- EGA Weight BP Urine Prot -?-?-?-?-?-?-?-?-?-?-?-?- Glucose FHR FuHt Pres Dilation -?-?-?-?-?-?-?-?-?-?-?-?- Effaced St Visit Note 12/17/22 -?-?-?-?-?-?-?-?-?-?-?-?- 9w 1d 150 lb 2 oz 128/87 -?-?-?-?-?-?-?-?-?-?-?-?- 180 -?-?-?-?-?-?-?-?-?-?-?-?- SM- CRL 2cm cons with LMP 01/15/23 -?-?-?-?-?-?-?-?-?-?-?-?- 13w 2d 148 lb 6 oz 97/65 -?-?-?-?-?-?-?-?-?-?-?-?- 155 -?-?-?-?-?-?-?-?-?-?-?-?- JV- bedside can consistent with 13 weeks. no complaints today. results reviewed. rto in 4 weeks. anatomy scan ordered. 02/13/23 -?-?-?-?-?-?-?-?-?-?-?-?- 17w 3d 149 lb 6 oz 98/68 Nega tive -?-?-?-?-?-?-?-?-?-?-?-?- Negative 160 -?-?-?-?-?-?-?-?-?-?-?-?- -No VB. Doing well. Anatomy US 02/2603/13/23 -?-?-?-?-?-?-?-?-?-?-?-?- 21w 3d 154 lb 110/72 Negative -?-?-?-?-?-?-?-?-?-?-?-?- Negative 154 -?-?-?-?-?-?-?-?-?-?-?-?- -No Vb, LOF. G ood Fm. Feeling more anxious and wants to increase zoloft and Rx sent. 04/12/23 -?-?-?-?-?-?-?-?-?-?-?-?- 25w 5d 159 lb 4 oz 98/66 Nega tive -?-?-?-?-?-?-?-?-?-?-?-?- Negative 145 -?-?-?-?-?-?-?-?-?-?-?-?- SM- no vb lof go od fm no regular ctx discussed anxiety recommend celexa NST FHR Rate Baby A Variability:: Moderate Accelerations:: 15 x 15 Decelerations:: None NST Reactive:: Yes FHR Category:: Category I Assessment & Plan (1) Nausea & vomiting: COMMENT: s/p IV zofran and IVF bolus stable for d/c home PLAN: Patient presents for triage evaluation secondary to nausea/vomiting and diarrhea following administration of celexa. medication intolerance vs GI illness FHT: Moderate variability reactive no decelerations category I tracing [place]: no Contractions Assessment and plan: Reactive NST, reassuring maternal and status patient discharged to home to follow-up in office for anxiety on saturday when office opens. See problem list details for additional plan information. Charges/Coding Procedures Urinary/Genital 52xxx-59xxx: 01967-37 non-stress test Interp Multi Select Codes Urinary/Genital Urinary/Genital CPT Codes: 39787-26 non-stress test Interp
== END 2023-04-27 00:35 | disposition home or self-care (01) ==
LOC: WPOUT 22:01 → WP 22:02
PROVIDERS: PCP Internal Medicine; Referring Provider Registered Nurse; Visit Provider Registered Nurse
DX: O21.9 Vomiting of pregnancy, unspecified (principal); Z3A.27 27 weeks gestation of pregnancy; O99.891 Other specified diseases and conditions complicating pregnancy; R19.7 Diarrhea, unspecified
CPT/HCPCS: 96374; 96361; 59025; 59050; J7120; J2405

== ENCOUNTER → 2023-05-03 | Outpatient (CLI) | payer MEDICAID, SELFPAY ==
[2023-05-03 13:20] LABS: Absolute Lymphocyte Count 2.18 X10^3/uL (0.83-4.51); Absolute Neutrophil Count 5.8 X10^3/uL (2.0-7.7); Basophil# 0.01 X10^3/uL; Basophil% 0.1 % (0-1); Eosinophil# 0.04 X10^3/uL; Eosinophils% 0.5 % (0-5); Hematocrit 33.8 % (37-47); Hemoglobin 11.6 g/dL (12.0-15.0); Lymphocyte # 2.18 X10^3/ul (0.83-4.51); Lymphocyte % 25.1 % (19-41); Mean Corp Hgb Conc 34.3 g/dL (32-36); Mean Corpuscular Hgb 30.9 pg (27.0-32.0); Mean Corpuscular Volume 90.1 fL (81-99); Mean Platelet Vol. 9.9 fl (6.2-12.0); Monocyte# 0.57 X10^3/uL; Monocyte% 6.6 % (0-10); NRBC Flagged by Analyzer 0 % (0-5); Neutrophil # 5.81 X10^3/uL (2.7-7.7); Neutrophil % 66.9 % (47-70); Platelet Count 239 K/mm3 (150-450); RBC Distribution Width CV 12.9 % (11.6-14.6); Red Blood Count 3.75 M/mm3 (4.2-5.4); White Blood Count 8.7 K/mm3 (4.4-11.0)
[2023-05-03 13:54] LABS: Glucose Challenge Gest 1H 50g 105 mg/dL (70-140)
[2023-05-03 14:28] LABS: HIV - WCH Non-Reactive (Nonreactive); Syphilis Antibodies Non-reactive
== END | disposition home or self-care (01) ==
LOC: LAB 12:32
PROVIDERS: PCP Internal Medicine; Referring Provider Obstetrics & Gynecology; Visit Provider Obstetrics & Gynecology
DX: O09.90 Supervision of high risk pregnancy, unspecified, unspecified trimester (principal); Z13.1 Encounter for screening for diabetes mellitus; Z3A.00 Weeks of gestation of pregnancy not specified
CPT/HCPCS: 36415; 82950; 85025; 86703; 86780

== ENCOUNTER 2023-06-10 13:45 | Outpatient (CLI) | payer MEDICAID, SELFPAY ==
[2023-06-10 14:19] VITALS: PULSE 104; O2SAT 99
[2023-06-10 14:20] VITALS: TEMP 36.6
[2023-06-10 14:21] VITALS: BP 115/56; PULSE 73
[2023-06-10 14:31] VITALS: BMI 29.9
--- NOTE | 2023-06-10 15:33 | OB.TRI.HP_ITS ---
HPI - General General Date of Admission: 06/10/23 Date of Service: 06/10/23 HPI Narrative SMITH LINDSEY, is a 22 F who presents at 34.1 with umbilical pain, notices occasionally bruised. 4-6/10 pain, along with not feeling movement since this AM. denies urinary symptoms, gi symptoms. no headaches/ruq/visual changes. Maternal Data Information SOLANGE Calculator Estimated Delivery Date Method Current WG Current Estimate 07/21/23 LMP (Certain) 34w 1d PFSH PFSH Medical History Breast lump Family history of breast cyst HTN (hypertension) Hx of one miscarriage Home Medications spring [place] 1 tab PO DAILY 12/13/22 [History Last Taken 06/10/23] citalopram 10 mg tablet (Celexa) 30 mg (3 x 10 mg) PO DAILY 30 days #90 tabs 05/28/23 [Rx Last Taken 06/10/23] Allergy/AdvReac Type Severity Reaction Status Date / Time No Known Allergies Allergy Verified 06/10/23 14:32 Family History Mother FH: multiple miscarriages or stillbirths 2 MISCARRIAGES Grandmother FH: multiple miscarriages or stillbirths MATERNAL Other Anxiety Depression Hypertension Surgical History History of elective No history of previous surgery Social History adopted: No household members: significant other current occupational status: unemployed pets and animals: Yes pets and animals: dog(s) history of recent travel: No sexually active: Yes Smoking Status: Never smoker alcohol intake: never substance use type: does not use well-balanced diet: daily or most days caffeine: Yes eating out: rarely or never during the past year weight has: remained stable what type of physical activity do you participate in: none and walking margoth/anglican: None seatbelt use: always do you feel safe at home: Yes additional social history: BF Jose- Jesse History 3 Elective abortions 1 Hx Para 0 Spontaneous abortions 1 Hx # Term Pregnancies Ectopic pregnancies Hx # Pregnancies Multiple births # of living children 0 Visit Details Expected Delivery Route/Plan Labor Preferences- CB/BF classes: [] labor support person: [] labor intervention preferences: pain management options preferred: open to epidural cut cord/dad catch: [] : [] PP control planned: [] discussed possible routes of delivery and associated risks: [] special requests: [] Plans Covid status: discussed Flu vaccine: discussed Tdap vaccine: [] Rhogam: [] LARC form signed: [] Problem list reviewed and updated with the most current plan of care details and appropriate orders placed. Relevant counseling for the gestational age provided. Continue routine care and follow up unless otherwise noted in visit notes/problem list details OB Flowsheet Initial Weight: Not Recorded Date -?-?-?-?-?-?-?-?-?-?-?-?- EGA Weight BP Urine Prot -?-?-?-?-?-?-?-?-?-?-?-?- Glucose FHR FuHt Pres Dilation -?-?-?-?-?-?-?-?-?-?-?-?- Effaced St Visit Note 12/17/22 -?-?-?-?-?-?-?-?-?-?-?-?- 9w 1d 150 lb 2 oz 128/87 -?-?-?-?-?-?-?-?-?-?-?-?- 180 -?-?-?-?-?-?-?-?-?-?-?-?- SM- CRL 2cm cons with LMP 01/15/23 -?-?-?-?-?-?-?-?-?-?-?-?- 13w 2d 148 lb 6 oz 97/65 -?-?-?-?-?-?-?-?-?-?-?-?- 155 -?-?-?-?-?-?-?-?-?-?-?-?- JV- bedside can consistent with 13 weeks. no complaints today. results reviewed. rto in 4 weeks. anatomy scan ordered. 02/13/23 -?-?-?-?-?-?-?-?-?-?-?-?- 17w 3d 149 lb 6 oz 98/68 Nega tive -?-?-?-?-?-?-?-?-?-?-?-?- Negative 160 -?-?-?-?-?-?-?-?-?-?-?-?- MH-No VB. Doing well. Anatomy US 02/2603/13/23 -?-?-?-?-?-?-?-?-?-?-?-?- 21w 3d 154 lb 110/72 Negative -?-?-?-?-?-?-?-?-?-?-?-?- Negative 154 -?-?-?-?-?-?-?-?-?-?-?-?- MH-No Vb, LOF. G ood Fm. Feeling more anxious and wants to increase zoloft and Rx sent. 04/12/23 -?-?-?-?-?-?-?-?-?-?-?-?- 25w 5d 159 lb 4 oz 98/66 Nega tive -?-?-?-?-?-?-?-?-?-?-?-?- Negative 145 -?-?-?-?-?-?-?-?-?-?-?-?- SM- no vb lof go od fm no regular ctx discussed anxiety recommend celexa 05/03/23 -?-?-?-?-?-?-?-?-?-?-?-?- 28w 5d 164 lb 2 oz 101/70 Nega tive -?-?-?-?-?-?-?-?-?-?-?-?- Negative 150 28 -?-?-?-?-?-?-?-?-?-?-?-?- JV- gct done tod ay and pending. no complaints other than anxiety. plans to start her celexa today. 05/17/23 -?-?-?-?-?-?-?-?-?-?-?-?- 30w 5d 167 lb 4 oz 103/65 Nega tive -?-?-?-?-?-?-?-?-?-?-?-?- Negative 140 30 -?-?-?-?-?-?-?-?-?-?-?-?- Lc- no lof/vb/ct x. good fm. cut labia while shaving, itching. no s/sx of lesion, 1cm slit by left periurthra. comfort techniques. larc signed. did not start celexa, starting today. calm yumiko recommended. 05/28/23 -?-?-?-?-?-?-?-?-?-?-?-?- 32w 2d 167 lb 103/59 Negative -?-?-?-?-?-?-?-?-?-?-?-?- Negative 135 32 Breech -?-?-?-?-?-?-?-?-?-?-?-?- JV- plan 36 week bedside scan. no complaints other than worsening anxiety. increasing celexa to 30 mg from 20 mg. NST FHR Rate Baby A Baseline: 145 Variability:: Moderate Accelerations:: 15 x 15 Decelerations:: None NST Reactive:: Yes FHR Category:: Category I Uterine Activity:: none Assessment & Plan (1) Supervision of high risk , antepartum: COMMENT: PRR , SOLANGE 07/21/23 girl BF Jose(DO NOT DISCUSS PRIOR PREGNANCIES IN FRONT OF BF) (2) : QUALIFIERS: Weeks of gestation: 30 weeks Qualified Code(s): Z3A.30 - 30 weeks gestation of COMMENT: Neg carrier and LR NIPT, anatomy nl (3) Umbilical pain: COMMENT: belly band Charges/Coding Procedures Urinary/Genital 52xxx-59xxx: 41582-17 non-stress test Interp
== END 2023-06-10 15:03 | disposition home or self-care (01) ==
LOC: WPOUT 13:52 → WP 13:53
PROVIDERS: PCP Internal Medicine; Referring Provider Registered Nurse; Visit Provider Registered Nurse
DX: O99.891 Other specified diseases and conditions complicating pregnancy (principal); R10.9 Unspecified abdominal pain; Z3A.30 30 weeks gestation of pregnancy
CPT/HCPCS: 59025; 59050; 99221; G0378

== ENCOUNTER → 2023-06-28 | Outpatient (CLI) | payer MEDICAID, SELFPAY | END | disposition home or self-care (01) | PROVIDERS: PCP Internal Medicine; Referring Provider Registered Nurse; Visit Provider Registered Nurse | DX: Z34.90 Encounter for supervision of normal pregnancy, unspecified, unspecified trimester (principal) | CPT/HCPCS: 87077; 87081; 87186 ==

== ENCOUNTER 2023-07-14 11:03 | Inpatient (IN) | payer MEDICAID, SELFPAY ==
[2023-07-14] VITALS (15 sets, daily range): BP systolic 93–126; BP diastolic 37–77; PULSE 66–90; RESP 14–16; TEMP 36.1–36.4; O2SAT 96–99; BMI 31.1
[2023-07-14] MEDS: Lactated Ringers 1,000 ML 999 ML IV (11:30)
[2023-07-14 11:44] LABS: Absolute Lymphocyte Count 2.57 X10^3/uL (0.83-4.51); Absolute Neutrophil Count 6.9 X10^3/uL (2.0-7.7); Basophil# 0.01 X10^3/uL; Basophil% 0.1 % (0-1); Eosinophil# 0.05 X10^3/uL; Eosinophils% 0.5 % (0-5); Hematocrit 37.9 % (37-47); Hemoglobin 12.1 g/dL (12.0-15.0); Lymphocyte # 2.57 X10^3/ul (0.83-4.51); Lymphocyte % 24.6 % (19-41); Mean Corp Hgb Conc 31.9 g/dL (32-36); Mean Corpuscular Hgb 28.5 pg (27.0-32.0); Mean Corpuscular Volume 89.2 fL (81-99); Mean Platelet Vol. 10.3 fl (6.2-12.0); Monocyte# 0.89 X10^3/uL; Monocyte% 8.5 % (0-10); NRBC Flagged by Analyzer 0 % (0-5); Neutrophil # 6.87 X10^3/uL (2.7-7.7); Neutrophil % 65.6 % (47-70); Platelet Count 265 K/mm3 (150-450); RBC Distribution Width CV 12.9 % (11.6-14.6); RBC Distribution Width SD 41.8 fl (35.1-43.9); Red Blood Count 4.25 M/mm3 (4.2-5.4); White Blood Count 10.5 K/mm3 (4.4-11.0)
[2023-07-14 12:19] LABS: ALB/GLOB Ratio 0.6 RATIO (0.9-2.4); AST(SGOT) 27 U/L (15-37); Alanine Aminotransfer ALT/SGPT 28 U/L (13-56); Albumin, Serum 2.6 g/dL (3.2-5.0); Alkaline Phosphatase 181 U/L (45-117); Anion Gap 10 (5-15); BUN 8 mg/dL (7-18); BUN/Creat Ratio 11.9 RATIO (10-20); Calcium,Total 8.8 mg/dL (8.5-10.1); Chloride 105 mmol/L (98-107); Creatinine, Serum 0.67 mg/dL (0.55-1.02); EST Glomerular Filtration Rate 114 mL/min (>60); Est Glom Filt Rate - Afr Amer 138 mL/min (>60); Globulin 4.2 g/dL (2.2-4.2); Glucose 113 mg/dL (74-106); Potassium 3.6 mmol/L (3.5-5.1); Protein, Total 6.8 g/dL (6.4-8.2); Sodium Level 136 mmol/L (136-145)
[2023-07-14] MEDS: Lactated Ringers 1,000 ML 150 ML IV (12:30)
[2023-07-14] MEDS: Ondansetron 4 MG/2 ML Vial IV (12:36)
[2023-07-14 12:44] LABS: Syphilis Antibodies Non-reactive
--- NOTE | 2023-07-14 14:24 | HP.PCM.OB_ITS ---
HPI - General General Date of Admission: 07/14/23 HPI Narrative SMITH LINDSEY, is a 22 y/o @ 39 weeks who presents to L&D with the complaint of no movement since she woke up this am. Yesterday the movement was minimal. She has itching of hands and feet with some ruq tenderness. Pt states that she believes the RUQ pain is due to the baby's head hitting her there. She denies nausea, vomiting, diarrhea, or constipation. While on the monitor, the tracing showed signs of moderate variability and + accels, however went through a sleep cycle, as it appears, and had minimal to no variability and showed late decelerations. This improved with position change, but occasional late decelerations among moderate variability and + accelerations occurred. Maternal Data Information SOLANGE Calculator Estimated Delivery Date Method Current WG Current Estimate 07/21/23 LMP (Certain) 39w 0d PFSH PFSH Medical History Breast lump Family history of breast cyst HTN (hypertension) Hx of one miscarriage Home Medications [facility] [place] 1 tab PO DAILY 12/13/22 [History Last Taken 06/10/23] citalopram 40 mg tablet (Celexa) 40 mg PO DAILY #90 tabs 07/13/23 [Rx Last Taken 07/13/23] Allergy/AdvReac Type Severity Reaction Status Date / Time No Known Allergies Allergy Verified 07/14/23 10:37 Family History Mother FH: multiple miscarriages or stillbirths 2 MISCARRIAGES Grandmother FH: multiple miscarriages or stillbirths MATERNAL Other Anxiety Depression Hypertension Surgical History History of elective No history of previous surgery Social History adopted: No household members: significant other current occupational status: unemployed pets and animals: Yes pets and animals: dog(s) history of recent travel: No sexually active: Yes Smoking Status: Never smoker alcohol intake: never substance use type: does not use well-balanced diet: daily or most days caffeine: Yes eating out: rarely or never during the past year weight has: remained stable what type of physical activity do you participate in: none and walking margoth/druze: None seatbelt use: always do you feel safe at home: Yes additional social history: BF Dora Molina History 3 Elective abortions 1 Hx Para 0 Spontaneous abortions 1 Hx # Term Pregnancies Ectopic pregnancies Hx # Pregnancies Multiple births # of living children 0 Visit Details Expected Delivery Route/Plan Labor Preferences- CB/BF classes: [] labor support person: [] labor intervention preferences: pain management options preferred: open to epidural cut cord/dad catch: [] : [] PP control planned: [] discussed possible routes of delivery and associated risks: [] special requests: [] Plans Covid status: discussed Flu vaccine: discussed Tdap vaccine: [] Rhogam: [] LARC form signed: [] Problem list reviewed and updated with the most current plan of care details and appropriate orders placed. Relevant counseling for the gestational age provided. Continue routine care and follow up unless otherwise noted in visit notes/problem list details OB Flowsheet Initial Weight: Not Recorded Date -?-?-?-?-?-?-?-?-?-?-?-?- EGA Weight BP Urine Prot -?-?-?-?-?-?-?-?-?-?-?-?- Glucose FHR FuHt Pres Dilation -?-?-?-?-?-?-?-?-?-?-?-?- Effaced St Visit Note 12/17/22 -?-?-?-?-?-?-?-?-?-?-?-?- 9w 1d 150 lb 2 oz 128/87 -?-?-?-?-?-?-?-?-?-?-?-?- 180 -?-?-?-?-?-?-?-?--?-?-?-?- SM- CRL 2cm cons with LMP 01/15/23 -?-?-?-?-?-?-?-?-?-?-?-?- 13w 2d 148 lb 6 oz 97/65 -?-?-?-?-?-?-?-?-?-?-?-?- 155 -?-?-?-?-?-?-?-?-?-?-?-?- JV- bedside can consistent with 13 weeks. no complaints today. results reviewed. rto in 4 weeks. anatomy scan ordered. 02/13/23 -?-?-?-?-?-?-?-?-?-?--?-?- 17w 3d 149 lb 6 oz 98/68 Nega tive -?-?-?-?-?-?-?-?-?-?-?-?- Negative 160 -?-?-?-?-?-?-?-?-?-?-?-?- -No VB. Doing well. Anatomy US 02/2603/13/23 -?-?-?-?-?-?-?-?-?-?-?-?- 21w 3d 154 lb 110/72 Negative -?-?-?-?-?-?-?-?-?-?-?-?- Negative 154 -?-?-?-?-?-?-?-?-?-?-?-?- -No Vb, LOF. G ood Fm. Feeling more anxious and wants to increase zoloft and Rx sent. 04/12/23 -?-?-?-?-?-?-?-?-?-?-?-?- 25w 5d 159 lb 4 oz 98/66 Nega tive -?-?-?-?-?-?-?-?-?-?-?-?- Negative 145 -?-?-?-?-?-?-?-?-?-?-?-?- - no vb lof go od fm no regular ctx discussed anxiety recommend celexa 05/03/23 -?-?-?-?-?-?-?-?-?-?-?-?- 28w 5d 164 lb 2 oz 101/70 Nega tive -?-?-?-?-?-?-?-?-?-?-?-?- Negative 150 28 -?-?-?-?-?-?-?-?-?-?-?-?- JV- gct done [facility] and pending. no complaints other than anxiety. plans to start her celexa today. 05/17/23 -?-?-?-?-?-?-?-?-?-?-?-?- 30w 5d 167 lb 4 oz 103/65 Nega tive -?-?-?-?-?-?-?-?-?-?-?-?- Negative 140 30 -?-?-?-?-?-?-?-?-?-?-?-?- Lc- no lof/vb/ct x. good fm. cut labia while shaving, itching. no s/sx of lesion, 1cm slit by left periurthra. comfort techniques. larc signed. did not start celexa, starting today. calm yumiko recommended. 05/28/23 -?-?-?-?-?-?-?-?-?-?-?-?- 32w 2d 167 lb 103/59 Negative -?-?-?-?-?-?-?-?-?-?-?-?- Negative 135 32 Breech -?-?-?-?-?-?-?-?-?-?-?-?- JV- plan 36 week bedside scan. no complaints other than worsening anxiety. increasing celexa to 30 mg from 20 mg. 06/14/23 -?-?-?-?-?-?-?-?-?-?-?-?- 34w 5d 170 lb 2 oz 104/71 Nega tive -?-?-?-?-?-?-?-?-?-?-?-?- Negative 135 34 Breech -?-?-?-?-?-?-?-?-?-?-?-?- SM- no vb lof de cresaed fm no regular ctx - nst done SM- no vb lof decresaed fm n o regular ctx - nst done. discussed scheduling cs fo r for cs 06/28/23 -?-?-?-?-?-?-?-?-?-?-?-?- 36w 5d 171 lb 4 oz 113/76 Nega tive -?-?-?-?-?-?-?-?-?-?-?-?- Negative 140 37 Breech -?-?-?-?-?-?-?-?-?-?-?-?- LC- no vb/ctx/lo f. gbs obtained. breech on handheld us. 07/05/23 -?-?-?-?-?-?-?-?-?-?-?-?- 37w 5d 174 lb 8 oz 116/68 -?-?-?-?-?--?-?-?-?-?-?-?- 140 38 1 -?-?-?-?-?-?-?-?-?-?-?-?- SM- no vb lof g ood fm no regular ctx gbs collected 07/09/23 -?-?-?-?-?-?-?-?-?-?-?-?- 38w 2d 176 lb 2 oz 110/76 -?-?-?-?-?-?-?-?-?-?-?-?- 140 38 Breech -?-?-?-?-?-?-?-?-?-?-?-?- SM- no vb lof go od fm n oergular ctx NST FHR Rate Baby A Baseline: 140 Variability:: Moderate Accelerations:: 15 x 15 Decelerations:: Late NST Reactive:: Yes FHR Category:: Category II Uterine Activity:: irregular ROS Constitutional Constitutional: Denies change in weight, fatigue, fever(s), headache(s), poor appetite or weakness Eyes Eyes: Denies blurry vision, change in vision, seeing flashes or spots in vision ENT HEENT: Denies dizziness, headache(s), loss taste/smell or sore throat Cardiovascular Cardiovascular: Denies chest pain, dizziness, dyspnea, irregular heart rhythm, leg edema, palpitations, rapid heart rate or vomiting Respiratory/Chest Respiratory/Chest: Denies chest tightness, cough, dyspnea or breast pain Gastrointestinal Gastrointestinal: Denies abdominal pain, anorexia, constipation, cramping, diarrhea, hemorrhoids, vomiting or weight changes Genitourinary Genitourinary: Denies dysuria, flank pain, genital lesions, genital pain, urinary frequency or urinary urgency Musculoskeletal Musculoskeletal: Denies back pain, difficulty walking, joint pain, limited range of motion, muscle cramps or numbness Integumentary Integumentary: Denies lesions or unusual bruising Neurologic Neurologic: Denies abnormal movements, abnormal speech, dizziness, numbness, seizure-like activity or syncope Psychiatric Psychiatric: Denies anxiety, behavioral changes, change in appetite, change in libido, cognitive impairment, confusion, depression, difficulty concentrating, hallucinations or suicidal thoughts Endocrine Endocrinology: Denies excessive sweating, polydipsia or polyuria Hematologic/Lymphatic Hematologic/Lymphatic: Denies easy bleeding, easy bruising or lymphadenopathy Allergic/Immunologic Allergic/Immunologic: Denies itchy eyes, lip swelling, seasonal rhinorrhea, rhinitis, throat swelling, tongue swelling, eczemia, wheezing or asthma Vital Signs Vital Signs Vital Signs: 07/14/23 10:20 07/14/23 10:20 07/14/23 10:20 Temperature Temperature Source Temporal Pulse Rate 72 Respiratory Rate Blood Pressure 124/61 H Blood Pressure Mean BP Systolic 124 BP Diastolic 61 Blood Pressure Source Blood Pressure Position Blood Pressure Location Pulse Ox Oxygen Delivery Method 07/14/23 10:20 07/14/23 10:20 07/14/23 11:56 Temperature 97.6 F L 97.6 F L Temperature Source Temporal Pulse Rate 72 Respiratory Rate 14 Blood Pressure 124/61 H Blood Pressure Mean 82 BP Systolic BP Diastolic Blood Pressure Source Monitor Blood Pressure Position Semi-Fowlers Blood Pressure Location Right Arm Pulse Ox 97 97 Oxygen Delivery Method Room Air Weight Weight: 176 lb Body Mass Index (BMI) 31.1 Physical Exam Const alert, oriented x3, no apparent distress and healthy appearing General Appearance: cooperative; Negative for anxious HEENT normocephalic Face and Sinus: normal facial exam Eyes EOMs intact bilaterally and no scleral icterus General Eye: normal appearance of both eyes Neck full ROM and supple Lymph Lymphatic: no lymphadenopathy noted Chest Chest: abnormal inspection of the chest Resp normal respiratory effort Effort and Inspection: able to speak in complete sentences Cardio regular rate GI soft to palpation and non-tender Inspection: gravid and other Other Details: head at right upper quadrant Palpation: soft; Negative for tender Back/Spine no CVA tenderness Extremity normal to inspection, full ROM and no clubbing, cyanosis or edema General Extremity: Negative for calf tenderness or edema Skin Lesions: no lesions Rashes: no rashes Psych mental status grossly normal Labs Labs Labs: Blood Type O POSITIVE Antibody Screen NEGATIVE Hct 37.9 % (37-47) Hgb 12.1 g/dL (12.0-15.0) Obstetrics US Syphilis Total Ab Non-reactive Rubella IgG Antibody Reactive (Nonreactive) Hep Bs Antigen Non-Reactive (Nonreactive) Chlamydia DNA (ANNIA) Negative (Negative) Neisseria gonorrhoeae DNA (ANNIA) Negative (Negative) HIV 1&2 Antibody Non-Reactive (Nonreactive) Glucose 1 Hr 50 gm 105 mg/dL (70-140) Miscellaneous Test Assessment & Plan (1) Positive GBS test: COMMENT: treat if rom (2) Breech presentation: COMMENT: declined ECV plan primary LTCS at 39 if still breech. Scheduled for 07/15 @ 7:30 with SM (3) Decreased movements in third trimester: (4) Umbilical pain: COMMENT: belly band (5) Segmental and somatic dysfunction of lumbar region: (6) Anxiety: COMMENT: didn't tolerate zoloft or celexa, enc counseling. (7) UTI (urinary tract infection) during : COMMENT: Repeat urine culture at 01/15 neg (8) Supervision of high risk , antepartum: COMMENT: PRR , SOLANGE 07/21/23 girl Jose(DO NOT DISCUSS PRIOR PREGNANCIES IN FRONT OF BF) (9) Chronic insomnia: (10) Dyspepsia and disorder of function of stomach: PLAN: Plan After discussing the patient's diagnosis and treatment plan options, patient wishes to proceed with surgical management. I have discussed with the patient the risks, benefits, and alternatives of the procedure which include but are not limited to risks of anesthesia, bleeding, infection, possible damage to bowel, bladder, or surrounding vasculature which could lead to additional surgery to evaluate any complications. Patient agrees to procedure and wishes to proceed with a primary section at this time. ERAS protocol ordered
[2023-07-14] MEDS: Sodium Citrate/Citric Acid 30 ML UDC PO (15:07)
[2023-07-14] MEDS: Acetaminophen 500 MG Tablet 1000 MG PO ×2 (15:07→21:22)
--- NOTE | 2023-07-14 15:21 | DCINST_ITS ---
Discharge Instructions Diet Discharge Diet: No restrictions Activity Discharge Activity: May Not Drive (for 2 weeks or while taking narcotic pain medications.), May Shower and May Take a Tub Bath (in 7 days.) May resume sexual activity in: 4-6 weeks Weight Bearing Status: Full weight bearing Lifting Restrictions: 20 pounds Dressing / Incision Call your doctor if your incision/area has: Continuous Slow Oozing, Sudden Increased Bleeding, Increased Pain/ Swelling, Increased Redness and Foul Smelling Discharge Call your doctor if you observe: Fever of 101 or Higher and Using more than 1 pad per hour Suture Line Care: Avoid Pulling/Pushing and Avoid Pinching/Bending Cleanse incision/area with: Soap & Water and Keep Dressing Clean & Dry Follow Up Care Please Follow Up With: Fina Stark DO When: Call [phone] to make an appointment for an incision check in 1-2 weeks. Test Results: Test results from this visit will be discussed in further detail at your follow- up appointment, if applicable. Discharge Plan Admission Admit Date/Time: 07/14/23 11:03 Attending Provider: Fina Stark Primary Care Provider: Indira Mota Discharge Orders/Prescriptions Prescriptions: No Action [place] 1 tab PO DAILY citalopram [Celexa] 40 mg tablet 40 mg PO DAILY Qty: 90 4RF Referrals / Follow Up: Indira Mota MD [Primary Care Provider] -
--- NOTE | 2023-07-14 15:21 | EX.PCM.OBRPT ---
Assessment & Plan (1) Positive GBS test: COMMENT: treat if rom (2) Breech presentation: COMMENT: declined ECV plan primary LTCS at 39 if still breech. Scheduled for 07/15 @ 7:30 with SM (3) Decreased movements in third trimester: (4) Umbilical pain: COMMENT: belly band (5) Segmental and somatic dysfunction of lumbar region: (6) Segmental and somatic dysfunction of pelvic region: (7) Segmental and somatic dysfunction of sacral region: (8) Nausea & vomiting: COMMENT: s/p IV zofran and IVF bolus stable for d/c home (9) Anxiety: COMMENT: didn't tolerate zoloft or celexa, enc counseling. (10) UTI (urinary tract infection) during : COMMENT: Repeat urine culture at 01/15 neg (11) Supervision of high risk , antepartum: COMMENT: PRR , SOLANGE 07/21/23 girl BF Ojse(DO NOT DISCUSS PRIOR PREGNANCIES IN FRONT OF BF) (12) : QUALIFIERS: Weeks of gestation: 38 weeks Qualified Code(s): Z3A.38 - 38 weeks gestation of COMMENT: Neg carrier and LR NIPT, anatomy nl Maternal Data Information SOLANGE Calculator Estimated Delivery Date Method Current WG Current Estimate 07/21/23 LMP (Certain) 39w 0d Final SOLANGE: 07/21/23 Final SOLANGE Source: LMP Gestational age: 39 Details Operative Information Date of Procedure: 07/14/23 Pre-Operative Diagnosis: breech presentation, persistent decreased movement, signs and symptoms of cholestasis of , category 2 FHT Post-Operative Diagnosis: breech presentation, persistent decreased movement, signs and symptoms of cholestasis of , category 2 FHT Classification: VIK Procedure Type: low transverse iron setter #1: Dottie Gonzalez Type of Anesthesia: Spinal Antibiotic Given: Ancef 2 grams IV x1 Drain: James to straight drain Estimated Blood Loss: 300cc Findings Description of Procedure: The patient is a 22 y/o @ 39 weeks presented for primary due to breech presentation, decreased movement, symptoms of cholestasis of , and category 2 tracing. Spinal anesthesia was placed without difficulty. James catheter was placed. The patient was placed in the dorsal supine position with leftward tilt. Patient was prepped and draped in the normal sterile fashion. Pfannenstiel skin incision was made with the scalpel and carried through to the underlying layer of fascia with the scalpel. Fascia was nicked in the midline and the incision extended laterally. The rectus bellies were dissected off superiorly and inferiorly with out complication both sharply and bluntly. The peritoneum was entered digitally. The incision was stretched and a low transverse uterine incision was made with the scalpel. the infant's buttocks was presenting and the hips were gently grasped and delivered through the uterine incision to the level of the infants anterior arm. The anterior arm was swept downward and delivered. The infant was then rotated to the opposite side where the same maneuver was performed. The head then spontaneously delivered. The was vigorous and crying and moving all extremities. The cord was clamped and cut and the was handed off to awaiting nurse. The placenta was delivered spontaneously immediately following and was noted to be intact and have a three-vessel cord. The uterus was exteriorized cleared of all clots and debris, and the incision was closed in a single hemostatic layer with a 1-0 Vicryl suture. The ovaries and fallopian tubes were noted to be within normal limits. The uterus was returned to the maternal abdomen and gutters were cleared of all clots and debris. The peritoneum was closed with 3-0 Monocryl in a running fashion. Gloves were changed prior to fascial closure. Fascia was closed with 0 PDS in a running fashion. Subcutaneous tissue was copiously irrigated and the skin was closed with 3-0 Monocryl in a subcuticular fashion. Mepilex dressing was applied without complication. Patient was taken to recovery in stable condition. It was discussed with the patient that based on the clinical information obtained during this encounter, combined with her history, at this time I would recommend either or repeat for future deliveries if further pregnancies are desired. baby girl Ivy wt: 7 lbs 8 oz Presentation: Positive for Refugio Breech Amniotic Membrane Rupture Type: Artificial Placenta Disposition: [facility] Cord Vessel Description: 3 Vessels Cord Entanglement: None Infant A Gender: Female (1 minute): 8 (5 minute): 9 Delayed Cord Clamping: Yes Complications Risks of Surgery Discussed w/Patient: Bleeding, Anesthesia Risks, Need for Future C-Sections and Injury to surrounding structure(s) including bowel and bladder Multi Select Codes Urinary/Genital Urinary/Genital CPT Codes: 76616 Delivery [facility]
[2023-07-14] MEDS: Cefazolin 2 GM in 0.9% Normal Saline 100 ML IV (15:32)
[2023-07-14] MEDS: Ketorolac 30 MG/ML Syringe IV ×2 (16:52→22:30)
[2023-07-14] MEDS: Oxytocin 15 Units/NS 250ml 15 UNITS/250 ML IV.SOLN 83 UNITS IV (16:53)
[2023-07-14] MEDS: Lactated Ringers 1,000 ML 100 ML IV (20:00)
[2023-07-15] VITALS (7 sets, daily range): BP systolic 108–124; BP diastolic 59–64; PULSE 60–84; RESP 16–18; TEMP 36.1–36.9; O2SAT 98
[2023-07-15] MEDS: Acetaminophen 500 MG Tablet 1000 MG PO ×3 (02:56→16:44)
[2023-07-15] MEDS: 0.9% Saline Lock 10 ML Syringe IV ×2 (04:37→11:03)
[2023-07-15] MEDS: Ketorolac 30 MG/ML Syringe IV ×2 (04:37→11:02)
[2023-07-15 05:56] LABS: Hemoglobin 9.9 g/dL (12.0-15.0); Mean Corp Hgb Conc 31.9 g/dL (32-36); Mean Corpuscular Hgb 28.6 pg (27.0-32.0); Mean Corpuscular Volume 89.6 fL (81-99); Mean Platelet Vol. 10.1 fl (6.2-12.0); Platelet Count 239 K/mm3 (150-450); RBC Distribution Width CV 12.9 % (11.6-14.6); RBC Distribution Width SD 41.7 fl (35.1-43.9); Red Blood Count 3.46 M/mm3 (4.2-5.4); White Blood Count 18.7 K/mm3 (4.4-11.0)
--- NOTE | 2023-07-15 08:47 | PCM.PN.OB ---
Subjective Subjective Patient doing well without complaints. Tolerating PO. Ambulating and voiding without difficulty. feeding well. Denies chest pain, shortness of breath, calf pain/swelling, fevers, chills, lightheadedness. Objective Data Objective Data Vital Signs: Vital Signs Temp Pulse Resp BP Pulse Ox O2 Del Method 97.0 F L 60 18 108/62 98 Room Air 07/15/23 07:55 07/15/23 07:55 07/15/23 07:55 07/15/23 07:55 07/15/23 07:55 07/15/23 07:55 Oxygen Delivery Method Room Air Weight: 176 lb Body Mass Index (BMI) 31.1 Intake & Output: Intake and Output for Last 24 Hours 07/13/23 07/14/23 07/15/23 23:59 23:59 23:59 Intake Total 2059 / 2059 695 / 695 Output Total 475 / 1475 2400 / 2400 Balance 1584 / 584 -1705 / -1705 Lab / Micro Data 07/15/23 05:50 07/14/23 11:30 Labs: Laboratory Results - last 24 hr 07/14/23 11:30: WBC 10.5, RBC 4.25, Hgb 12.1, Hct 37.9, MCV 89.2, MCH 28.5, MCHC 31.9 L, RDW Std Deviation 41.8, RDW Coeff of Dorota 12.9, Plt Count 265, MPV 10.3, Immature Gran % (Auto) 0.700, Neut % (Auto) 65.6, Lymph % (Auto) 24.6, [place] % (Auto) 8.5, Eos % (Auto) 0.5, Baso % (Auto) 0.1, Absolute Neuts (auto) 6.9, Absolute Lymphs (auto) 2.57, Nucleated RBC % 0, Sodium 136, Potassium 3.6, Chloride 105, Carbon Dioxide 21.0, Anion Gap 10, BUN 8, Creatinine 0.67, Estim Creat Clear Calc 107.10, Est GFR (MDRD) Af Amer 138, Est GFR (MDRD) Non-Af 114, BUN/Creatinine Ratio 11.9, Glucose 113 H, Calcium 8.8, Total Bilirubin 0.50, AST 27, ALT 28, Alkaline Phosphatase 181 H, Total Protein 6.8, Albumin 2.6 L, Globulin 4.2, Albumin/Globulin Ratio 0.6 L, Syphilis Total Ab Non-reactive, Blood Type O POSITIVE, Antibody Screen NEGATIVE 07/15/23 05:50: WBC 18.7 H, RBC 3.46 L, Hgb 9.9 L, Hct 31.0 L, MCV 89.6, MCH 28.6, MCHC 31.9 L, RDW Std Deviation 41.7, RDW Coeff of Dorota 12.9, Plt Count 239, MPV 10.1 ROS Constitutional Constitutional: Reports systems reviewed and no addt'l complaints, except as documented Cardiovascular Cardiovascular: Reports systems reviewed and no addt'l complaints, except as documented Respiratory/Chest Respiratory/Chest: Reports systems reviewed and no addt'l complaints, except as documented Gastrointestinal Gastrointestinal: Reports systems reviewed and no addt'l complaints, except as documented Physical Exam Const alert, oriented x3 and no apparent distress HEENT Head and Scalp: atraumatic Resp normal respiratory effort GI soft to palpation and non-tender Inspection: incision intact, healing well and drainage (none) Bimanual Exam - Vag & Uterus: uterus non-tender Uterus Palpation: uterus fundus firm (below Umbilicus) Assessment & Plan (1) delivery delivered: COMMENT: LTCS breech JV PLAN: Plan s/p LTCS PPD # 1 1. routine post care 2. breast feeding- support given 3. rh positive 4. rubella immune
[2023-07-15] MEDS: Senna/Docusate Sodium 1 Tablet PO (09:16)
--- NOTE | 2023-07-15 16:36 | CASEMGMT ---
Social Work Assessment Labor and Delivery Unit Patient Address: [address] [place] [address] Phone number: [phone] Date of Referral: 07/14/23 Time of referral: 1927 Referred By: Fina Stark Date of Intervention: ?07/15/23? Time of Intervention:? 929 Reason for Referral:? resources, mental health Sw completed chart review and acknowledges social work consult entered. Sw presented to bedside and introduced self to mother of baby (MOB- Poly) and father of baby (FOB- Jose). Sw explained sw role during admission. Sw completed psychosocial assessment and provided resources to support MOB mental health. Sw asked FOB to step out of room for MOB to complete [place] Depression Scale. FOB left room willingly and respectfully. History obtained from: medical records, MOB and FOB. ??? Household composition: Currently residing in the home is MOB, FOB and now baby girl. Patient's parent/guardian status:? MOB is 22 year old single, female who states that she and FOB have been together for 5-6 years. FOB is single, male. While meeting privately with MOB, MOB disclosed to social work that she and FOB met each other when they were children. MOB states that there was a period of time where they were because FOIngrid had cheated on her and moved out of state. MOB states that at that time she discovered she was , and scheduled elective . MOB states that FOB does not know that that was an elective procedure. MOB states that FOB moved home to work things out, and they have been together for three years since that time. MOB denied any issues with domestic violence or intimate partner violence. MOB states that she and FOB have grown and learned a lot since they have gotten back together. Medical History: RAMIRO is 3, para 0- now 1. RAMIRO did experience spontaneous miscarriage. RAMIRO received routine care during her with [place]. RAMIRO delivered baby girl via scheduled due to baby being breech. Baby girl, Roselyn Kenyon, was born on 07/14/23 weighing 7lb 4oz and her apgars were 8 and 9 at one and five minuts of life respectfully. MOB states that she is breast feeding and it is going well. Educational Status: Both parents obtained high school diploma's.PRADEEP reports that he has some college experience but did not graduate. Financial Status: PRADEEP is gainfully employed outside of the home. PRADEEP works at [employer], he states that he is eligible to take off 3 weeks of paid time off now that baby has been born. 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 Infant Supplies:?RAMIRO states that she has obtained all necessary baby items for baby including: car seat, safe sleep space, clothes, diapers, wipes and breast pump Childcare/Caregiver(s):? MOB will be primary caregiver to baby during the day, and will have help from FOIngrid when he is not at work. Transportation:?Both parents have drivers license and reliable transportation. No transportation barriers at this time. Programs/Agencies Involved: ?RAMIRO is connected to some services through J[facility]: WIC, Medicaid and food stamps? Children Services/Legal Issues:?No former children services involvement, no concerns or issues that warrant need for referral at this time. ?? Behavioral Health Issues: ??Mental Health History:??RAMIRO states that she has significant history with anxiety. MOB states that she has also been diagnosed with depression. RAMIRO reporst that she is on citalopram and her dosage was just increased now that baby is here. RAMIRO states that when she had her prior two losses she did experience baby blues/ depression. RAMIRO states that it was really hard at that time because she did not have her baby with her. Sw educated MOB and PRADEEP on signs and symptoms of baby blues and depression. PRADEEP states that he feels that he would be able to recognize symptoms should MOB start to experience them. RAMIRO completed the [place] Depression Scale and her score was an 8. Sw encouraged MOB to get connected to mental health support. RAMIRO said that she has never been active in counseling, she does not feel that it would help her. Sw encouraged MOB to stay connected to her OBGYN and use them as an additional resource. ? Substance Use History: MOB denies substance use prior to or during . ?? Family History:??MOB states that neither parent has a family history of substance use or mental health.??? Drug Screens: NO urine screens observed in chart review. Family/Social Stressors:? MOB talked openly to social work about the former losses that she has experienced. MOB also talked to social work about her mental health history. MOB states that she is anxious over a lot of things. MOB stated that she downloaded an yumiko to keep track of everything baby including: eats, feeds, sleep and diapers. MOB states that she is feeding baby at least every 2.5 hours. Sw provided support and utilized active listening. Support Systems: MOB reports that FOB is a big support for her and both sets of grandparents. Depression/Shaken Baby/Safe Sleeping: Sw educated parents on signs and symptoms of baby blues and depression/ anxiety. Parents expressed understanding. Sw discussed ABCs of safe sleep and shaken baby prevention. Both parents expressed understanding. ASSESSMENT:? Parents were engaged during assessment. FOB appears to be a natural support for MOB. MOB stated that she and FOB have gone through a lot but are stronger now. Parents were observed to care for baby girl in loving manner. Parents were receptive to sw involvement and support. MOB would benefit from getting connected to community mental health supports. PLAN:? MOB and baby to be discharged when medically ready. ?No other services requested or indicated. Kirti Cole, HUMAN PROJECTILE, PRODUCTION CONTROL TECHNOLOGIST
[2023-07-15] MEDS: Ibuprofen 600 MG Tablet PO (16:44)
[2023-07-15] MEDS: Citalopram 40 MG TABLET PO (16:44)
== END 2023-07-15 18:00 | disposition home or self-care (01) | DRG 540 ==
LOC: WPOUT 11:05 → WP 11:05
PROVIDERS: Admitting Provider Obstetrics & Gynecology; PCP Internal Medicine; Referring Provider Obstetrics & Gynecology; Visit Provider Obstetrics & Gynecology
DX: O32.1XX0 Maternal care for breech presentation, not applicable or unspecified (principal); B95.1 Streptococcus, group B, as the cause of diseases classified elsewhere; F41.9 Anxiety disorder, unspecified; F51.04 Psychophysiologic insomnia; Z37.0 Single live birth; M99.04 Segmental and somatic dysfunction of sacral region; O99.824 Streptococcus B carrier state complicating childbirth; O76 Abnormality in fetal heart rate and rhythm complicating labor and delivery; M99.03 Segmental and somatic dysfunction of lumbar region; O99.344 Other mental disorders complicating childbirth; O36.8130 Decreased fetal movements, third trimester, not applicable or unspecified; Z3A.39 39 weeks gestation of pregnancy; O99.893 Other specified diseases and conditions complicating puerperium
CPT/HCPCS: 59025; 59050; 80053; 85025; 85027; 86780; 86850; 86900; 86901; 99221; J7120; A4216; G0378; J2405

== ENCOUNTER → 2023-11-08 | Outpatient (CLI) | payer MEDICAID, SELFPAY | END | disposition home or self-care (01) | LOC: LABSPEC 17:07 | PROVIDERS: PCP Internal Medicine; Referring Provider Registered Nurse; Visit Provider Registered Nurse | DX: N89.8 Other specified noninflammatory disorders of vagina (principal) | CPT/HCPCS: 87070; 87077; 87186; 87205 ==

== ENCOUNTER → 2024-03-09 | Outpatient (CLI) | payer MEDICAID, SELFPAY ==
[2024-03-09 15:32] LABS: hCG Titer Quant., Serum < 1 mIU/mL (1-3)
== END | disposition home or self-care (01) ==
PROVIDERS: PCP Internal Medicine; Referring Provider Obstetrics & Gynecology; Visit Provider Obstetrics & Gynecology
DX: N91.2 Amenorrhea, unspecified (principal)
CPT/HCPCS: 36415; 84702

== ENCOUNTER → 2024-03-20 | Outpatient (CLI) | payer MEDICAID, SELFPAY ==
[2024-03-20 15:56] LABS: hCG Titer Quant., Serum < 1 mIU/mL (1-3)
== END | disposition home or self-care (01) ==
LOC: LAB 14:15
PROVIDERS: PCP Internal Medicine; Referring Provider Obstetrics & Gynecology; Visit Provider Obstetrics & Gynecology
DX: N91.2 Amenorrhea, unspecified (principal)
CPT/HCPCS: 36415; 84702

== ENCOUNTER → 2024-08-17 | Outpatient (CLI) | payer MEDICAID, SELFPAY ==
[2024-08-17 16:24] LABS: Absolute Lymphocyte Count 2.72 X10^3/uL (0.83-4.51); Absolute Neutrophil Count 7.3 X10^3/uL (2.0-7.7); Basophil# 0.02 X10^3/uL; Basophil% 0.2 % (0-1); Eosinophil# 0.04 X10^3/uL; Eosinophils% 0.4 % (0-5); Hematocrit 42.3 % (37-47); Hemoglobin 13.9 g/dL (12.0-15.0); Lymphocyte # 2.72 X10^3/ul (0.83-4.51); Lymphocyte % 25.2 % (19-41); Mean Corp Hgb Conc 32.9 g/dL (32-36); Mean Corpuscular Hgb 29.4 pg (27.0-32.0); Mean Corpuscular Volume 89.6 fL (81-99); Mean Platelet Vol. 9.9 fl (6.2-12.0); Monocyte# 0.75 X10^3/uL; Monocyte% 6.9 % (0-10); NRBC Flagged by Analyzer 0 % (0-5); Neutrophil # 7.25 X10^3/uL (2.7-7.7); Platelet Count 288 K/mm3 (150-450); RBC Distribution Width SD 39.6 fl (35.1-43.9); Red Blood Count 4.72 M/mm3 (4.2-5.4); White Blood Count 10.8 K/mm3 (4.4-11.0)
[2024-08-17 17:53] LABS: HIV - WCH Non-Reactive (Nonreactive); Hepatitis B Surface Antigen Non-Reactive (Nonreactive); Hepatitis C Antibody Non-Reactive (Nonreactive); Rubella IgG Reactive (Nonreactive); Syphilis Antibodies Non-reactive
[2024-08-20 07:08] LABS: Chlamydia By Nucleic Acid AMP Negative (Negative); Gonococcus By Nucleic Acid AMP Negative (Negative)
== END | disposition home or self-care (01) ==
PROVIDERS: PCP Internal Medicine; Referring Provider Obstetrics & Gynecology; Visit Provider Obstetrics & Gynecology
DX: Z34.90 Encounter for supervision of normal pregnancy, unspecified, unspecified trimester (principal)
CPT/HCPCS: 36415; 85025; 86703; 86762; 86780; 86803; 86850; 86900; 86901; 87086; 87340; 87491; 87591

== ENCOUNTER → 2024-08-28 | Outpatient (CLI) | payer MEDICAID, SELFPAY ==
--- NOTE | 2024-08-28 16:38 | US_ITS ---
EXAM: US , TRANSABDOMINAL AND TRANSVAGINAL CLINICAL INDICATION: attention right ovary -- suspect ovarian cyst TECHNIQUE: Real-time transvaginal obstetrical ultrasound of the maternal pelvis and a first trimester with image documentation. Transvaginal imaging was used for better evaluation of the fetus and adnexa. COMPARISON: No relevant prior studies available. FINDINGS: UTERUS/CERVIX: Uterus 11.8 cm x 9 cm x 9.1 cm. Intrauterine gestation sac with pole. Mean sac diameter 5.8 cm-6.4 cm consistent with 11 weeks 6 days-12 weeks 5 days gestation. heart rate of 164 bpm. CRL 5.5 cm consistent with 12 weeks 0 days gestation. OVARIES: RIGHT OVARY: 2.5 cm x 2.3 cm x 2.8 cm. Documented blood flow. LEFT OVARY: 2.7 cm x 1.3 cm x 2.6 cm. Documented blood flow. FREE FLUID: No free fluid. US/Transvaginal w/Preg US IMPRESSION: Single live intrauterine . 12 weeks by CRL. No acute abnormality. Electronically Signed: Terese Wheeler MD at 18:19 EDT ,
== END | disposition home or self-care (01) ==
LOC: US 16:38
PROVIDERS: PCP Internal Medicine; Referring Provider Obstetrics & Gynecology; Visit Provider Obstetrics & Gynecology
DX: O26.899 Other specified pregnancy related conditions, unspecified trimester (principal); R10.31 Right lower quadrant pain; Z3A.00 Weeks of gestation of pregnancy not specified
CPT/HCPCS: 76817

== ENCOUNTER → 2024-11-13 | Outpatient (CLI) | payer MEDICAID, SELFPAY ==
[2024-11-13 16:42] LABS: ALB/GLOB Ratio 0.8 RATIO (0.9-2.4); AST(SGOT) 17 U/L (15-37); Alanine Aminotransfer ALT/SGPT 21 U/L (13-56); Alkaline Phosphatase 60 U/L (45-117); Anion Gap 6 (5-15); BUN 6 mg/dL (7-18); BUN/Creat Ratio 11.4 RATIO (10-20); Calcium,Total 8.9 mg/dL (8.5-10.1); Chloride 105 mmol/L (98-107); Creatinine, Serum 0.53 mg/dL (0.55-1.02); EST Glomerular Filtration Rate 149 mL/min (>60); Est Glom Filt Rate - Afr Amer 180 mL/min (>60); Globulin 3.9 g/dL (2.2-4.2); Glucose 63 mg/dL (74-106); Potassium 3.5 mmol/L (3.5-5.1); Protein, Total 6.9 g/dL (6.4-8.2); Sodium Level 136 mmol/L (136-145)
== END | disposition home or self-care (01) ==
PROVIDERS: PCP Internal Medicine; Referring Provider Obstetrics & Gynecology; Visit Provider Obstetrics & Gynecology
DX: L29.9 Pruritus, unspecified (principal)
CPT/HCPCS: 36415; 80053

== ENCOUNTER 2024-12-05 17:05 | Outpatient (CLI) | payer MEDICAID, SELFPAY ==
[2024-12-05 17:23] VITALS: BP 109/66; PULSE 86; RESP 16; TEMP 36.4; O2SAT 97
[2024-12-05 17:24] VITALS: BMI 30.7
--- NOTE | 2024-12-05 18:05 | OB.TRI.PN ---
Progress Notes Date of Service: 12/05/24 Progress Note: Patient presents for triage evaluation secondary to decreased movement at 26 weeks FHT: 155 Moderate variability reactive no decelerations. appropriate NST for gestational age Painter: none Contractions Assessment and plan: audible movement on unit, Reactive NST, reassuring maternal and status patient discharged to home to follow-up as scheduled. See problem list details for additional plan information. Charges/Coding Multi Select Codes Urinary/Genital Urinary/Genital CPT Codes: 45505-80 non-stress test Interp Assessment & Plan (1) Decreased movement: COMMENT: 26 weeks. NST appropriate for gestational age (2) History of delivery, currently : COMMENT: Wants to discuss vs rpt csec- undecided (3) Supervision of high-risk : COMMENT: , SOLANGE 03/11/25, PC: Roselyn, BF: Jose (4) : QUALIFIERS: Weeks of gestation: 23 weeks Qualified Code(s): Z3A.23 - 23 weeks gestation of COMMENT: nl anatomy, Discussed genetic/carrier testing - NIPT low risk (carrier done with prior ) (5) with abdominal pain of right lower quadrant, antepartum: (6) Anxiety: COMMENT: enc counseling. hand out given. stable on celexa her depression screening decreased from 12 to 6.
== END 2024-12-05 18:14 | disposition home or self-care (01) ==
LOC: WPOUT 17:13 → WP 17:13
PROVIDERS: PCP Internal Medicine; Visit Provider Advanced Practice Midwife
DX: O36.8120 Decreased fetal movements, second trimester, not applicable or unspecified (principal); Z3A.26 26 weeks gestation of pregnancy
CPT/HCPCS: 59025; 59050; 99221; G0378

== ENCOUNTER → 2024-12-09 | Outpatient (CLI) | payer MEDICAID, SELFPAY ==
[2024-12-09 15:42] LABS: Absolute Lymphocyte Count 2.09 X10^3/uL (0.83-4.51); Absolute Neutrophil Count 7.8 X10^3/uL (2.0-7.7); Basophil# 0.03 X10^3/uL; Basophil% 0.3 % (0-1); Eosinophil# 0.07 X10^3/uL; Eosinophils% 0.6 % (0-5); Hematocrit 36.3 % (37-47); Hemoglobin 12.5 g/dL (12.0-15.0); Lymphocyte # 2.09 X10^3/ul (0.83-4.51); Mean Corp Hgb Conc 34.4 g/dL (32-36); Mean Corpuscular Hgb 30.1 pg (27.0-32.0); Mean Corpuscular Volume 87.5 fL (81-99); Mean Platelet Vol. 9.6 fl (6.2-12.0); Monocyte% 8.2 % (0-10); NRBC Flagged by Analyzer 0 % (0-5); Neutrophil # 7.75 X10^3/uL (2.7-7.7); Neutrophil % 70.6 % (47-70); Platelet Count 280 K/mm3 (150-450); RBC Distribution Width CV 12.7 % (11.6-14.6); RBC Distribution Width SD 40.8 fl (35.1-43.9); Red Blood Count 4.15 M/mm3 (4.2-5.4)
[2024-12-09 15:50] LABS: Glucose Challenge Gest 1H 50g 100 mg/dL (70-140)
[2024-12-09 16:24] LABS: HIV - WCH Non-Reactive (Nonreactive); Syphilis Antibodies Non-reactive
== END | disposition home or self-care (01) ==
LOC: BWCLAB 15:07
PROVIDERS: Obstetrics & Gynecology; PCP Internal Medicine; Referring Provider Obstetrics & Gynecology; Visit Provider Obstetrics & Gynecology
DX: O09.90 Supervision of high risk pregnancy, unspecified, unspecified trimester (principal); Z3A.00 Weeks of gestation of pregnancy not specified; Z13.1 Encounter for screening for diabetes mellitus
CPT/HCPCS: 36415; 82950; 85025; 86703; 86780

== ENCOUNTER → 2025-01-08 | Outpatient (CLI) | payer MEDICAID, SELFPAY ==
[2025-01-08 16:44] LABS: ALB/GLOB Ratio 0.6 RATIO (0.9-2.4); AST(SGOT) 19 U/L (15-37); Alanine Aminotransfer ALT/SGPT 22 U/L (13-56); Albumin, Serum 2.7 g/dL (3.2-5.0); Alkaline Phosphatase 72 U/L (45-117); Anion Gap 10 (5-15); BUN 6 mg/dL (7-18); BUN/Creat Ratio 10.8 RATIO (10-20); Calcium,Total 8.9 mg/dL (8.5-10.1); Chloride 106 mmol/L (98-107); Creatinine, Serum 0.56 mg/dL (0.55-1.02); EST Glomerular Filtration Rate 140 mL/min (>60); Est Glom Filt Rate - Afr Amer 169 mL/min (>60); Globulin 4.3 g/dL (2.2-4.2); Glucose 125 mg/dL (74-106); Potassium 3.4 mmol/L (3.5-5.1); Sodium Level 136 mmol/L (136-145)
== END | disposition home or self-care (01) ==
PROVIDERS: PCP Internal Medicine; Referring Provider Obstetrics & Gynecology; Visit Provider Obstetrics & Gynecology
DX: L29.9 Pruritus, unspecified (principal)
CPT/HCPCS: 36415; 80053

== ENCOUNTER → 2025-01-12 | Outpatient (CLI) | payer MEDICAID, SELFPAY | END | disposition home or self-care (01) | LOC: LABSPEC 16:38 | PROVIDERS: PCP Internal Medicine; Referring Provider Obstetrics & Gynecology; Visit Provider Obstetrics & Gynecology | DX: M54.9 Dorsalgia, unspecified (principal) | CPT/HCPCS: 87086; 87088 ==

== ENCOUNTER → 2025-01-18 | Outpatient (CLI) | payer MEDICAID, SELFPAY ==
--- NOTE | 2025-01-18 12:51 | US_ITS ---
PROCEDURE: OB LIMITED WITH BIOMETRICS REASON FOR EXAM: growth. COMPARISON: None. FINDINGS Number: 1 Position: Vertex Placental Position: Anterior and not low-lying. Placental Abnormalities: None. DIMENSIONS: Biparietal Diameter: 8.42 cm: 33 weeks 6 days: 80 percentile/ Head Circumference: 30.83 cm: 34 weeks and 3 days: 62 percentile/ Abdominal Circumference: 29.47 cm: 33 weeks and 3 days: 75 percentile/ Femur Length: 6.27 cm: 32 weeks and 3 days: 34 percentile/ ESTIMATED WEIGHT: 2174 g plus/-326 g ESTIMATED WEIGHT PERCENTILE (24+ weeks): 64 ESTIMATED GESTATIONAL AGE: Baseline: 32 weeks and 4 days By Ultrasound: 33 weeks and 5 days ESTIMATED DATE OF DELIVERY: Baseline: March 11, 2025 By Ultrasound: March 03, 2025 BIOPHYSICAL ASSESSMENT: Amniotic Fluid Volume: Subjectively normal. Amniotic Fluid Index: 12.3 (8-24 cm normal range) Cardiac Motion: 147 (average) Trunk and Limb Motion: Present. MATERNAL ANATOMY: Adnexa: Neither maternal ovary is successfully identified. Cervical Length (if measured): 3.6 cm US/OB Limited With Biometrics IMPRESSION: Single live intrauterine gestation with a mean gestational age of 33 weeks and 5 days. Reading Location: [facility]
== END | disposition home or self-care (01) ==
LOC: US 12:50
PROVIDERS: PCP Internal Medicine; Referring Provider Obstetrics & Gynecology; Visit Provider Obstetrics & Gynecology
DX: O99.713 Diseases of the skin and subcutaneous tissue complicating pregnancy, third trimester (principal); L29.9 Pruritus, unspecified; Z3A.33 33 weeks gestation of pregnancy
CPT/HCPCS: 76816

== ENCOUNTER → 2025-02-02 | Outpatient (CLI) | payer MEDICAID, SELFPAY ==
[2025-02-02 15:03] LABS: Absolute Neutrophil Count 7.4 X10^3/uL (2.0-7.7); Basophil# 0.03 X10^3/uL; Basophil% 0.3 % (0-1); Eosinophil# 0.06 X10^3/uL; Eosinophils% 0.6 % (0-5); Hematocrit 34.9 % (37-47); Hemoglobin 11.3 g/dL (12.0-15.0); Lymphocyte % 19.2 % (19-41); Mean Corp Hgb Conc 32.4 g/dL (32-36); Mean Corpuscular Hgb 28.7 pg (27.0-32.0); Mean Corpuscular Volume 88.6 fL (81-99); Mean Platelet Vol. 9.9 fl (6.2-12.0); Monocyte# 0.82 X10^3/uL; Monocyte% 7.9 % (0-10); NRBC Flagged by Analyzer 0 % (0-5); Neutrophil # 7.44 X10^3/uL (2.7-7.7); Neutrophil % 71.1 % (47-70); Platelet Count 258 K/mm3 (150-450); RBC Distribution Width CV 13.1 % (11.6-14.6); RBC Distribution Width SD 42.2 fl (35.1-43.9); Red Blood Count 3.94 M/mm3 (4.2-5.4); White Blood Count 10.4 K/mm3 (4.4-11.0)
[2025-02-02 18:23] LABS: AST(SGOT) 22 U/L (<=31); Alanine Aminotransfer ALT/SGPT 19 U/L (<=34); Albumin, Serum 3.5 g/dL (3.5-5.0); Alkaline Phosphatase 85 U/L (35-104); Anion Gap 12 (5-15); BUN 6 mg/dL (4-19); BUN/Creat Ratio 13.6 RATIO (10-20); Calcium,Total 8.8 mg/dL (7.6-11.0); Carbon Dioxide 19.2 mmol/L (21.0-32.0); Chloride 103 mmol/L (98-108); Creatinine, Serum 0.45 mg/dL (0.70-1.20); EST Glomerular Filtration Rate 136 (>60); Globulin 1.8 g/dL (2.2-4.2); Glucose 78 mg/dL (70-99); Potassium 3.9 mmol/L (3.3-5.1); Protein, Total 5.3 g/dL (5.9-8.4); Sodium Level 134 mmol/L (133-145); Total Bilirubin 0.47 mg/dL (0.00-1.30)
== END | disposition home or self-care (01) ==
LOC: BWCLAB 14:16
PROVIDERS: PCP Internal Medicine; Referring Provider Obstetrics & Gynecology; Visit Provider Obstetrics & Gynecology
DX: L29.9 Pruritus, unspecified (principal); I95.9 Hypotension, unspecified
CPT/HCPCS: 36415; 80053; 85025

== ENCOUNTER 2025-02-04 06:37 | Outpatient (CLI) | payer MEDICAID, SELFPAY ==
[2025-02-04 07:09] VITALS: RESP 16; TEMP 36.1
[2025-02-04 07:10] VITALS: BP 114/60; PULSE 85
[2025-02-04 07:18] VITALS: BMI 32.6
[2025-02-04 07:48] LABS: Bacteria 0 SEEN /hpf (None Seen); Mucous, Urine 0 SEEN /hpf (<or=2+); White Blood Cells 0 SEEN /hpf (0-5)
[2025-02-04 07:56] LABS: Color, Urine Yellow (Yellow); Glucose, Dipstick Normal (Normal); Ketone-Dipstick 5 mg/dl (Negative); Leukocyte Esterase-Dipstick Negative /ul (Negative); Nitrite-Dipstick Negative (Negative); Occult Blood-Urine Negative /ul (Negative); Protein-Dipstick Negative (Negative); Specific Gravity, Urine 1.015 (1.002-1.030); Urine Bilirubin Dipstick Negative (Negative); Urine Clarity Clear (Clear); Urine Urobilinogen Normal (Normal); Urine pH 6.5 (5.0 - 8.0)
--- NOTE | 2025-02-04 07:57 | US_ITS ---
PROCEDURE: BIOPHYSICAL PROF W/O NON STRES REASON FOR EXAM: well-being. Lower abdominal pain. TECHNIQUE: Biophysical profile examination was performed. COMPARISON: Comparison is made with prior study dated January 18, 2025. FINDINGS: position: Cephalic heart rate: 150 beats per minute Amniotic fluid: Within normal limits. Largest fluid pocket: 4.2 cm: Amniotic fluid index: 10.1 Placenta lies along the anterior wall of the uterus without evidence of low- lying placenta. Age by LMP: 35 weeks and 0 days Biophysical profile: breathing movements: 2 Gross body movements: 2 tone: 2 Amniotic fluid volume: 2 Total score: 8/8 US/Biophysical Prof W/O Non Stres IMPRESSION: Normal biophysical profile. Reading Location: [id number]
[2025-02-04 08:02] LABS: Red Blood Cells-Urine 0 SEEN /hpf (0-5); Squamous Epithelial Cells - UA 0-5 SEEN /hpf (5-10)
--- NOTE | 2025-02-04 11:01 | OB.TRI.HP_ITS ---
HPI - General HPI Narrative SMITH LINDSEY, is a 24 F who presents Maternal Data Information SOLANGE Calculator Estimated Delivery Date Method Current WG Current Estimate 03/11/25 LMP (Certain) 35w 0d Other Estimates 03/10/25 Ultrasound #1 35w 1d PFSH PFSH Medical History Cholestasis during delivery delivered Vaginal discharge Amenorrhea Hx of one miscarriage Family history of breast cyst HTN (hypertension) Breast lump Home Medications ?Medication ?Instructions ?Recorded ?Last Taken ?Type docosahexaenoic acid 200 mg 200 mg PO DAILY 08/07/24 0 02/03/25 History capsule ( DHA) famotidine 20 mg tablet (Pepcid AC) 20 mg PO QHS PRN h eartburn #30 tabs 12/01/24 Unknown Rx hydroxyzine pamoate 50 mg capsule 50 mg PO TID-QID PRN anxiety #60 12/09/24 Unknown Rx caps Allergy/AdvReac Type Severity Reaction Status Date / Time No Known Allergies Allergy Verified 02/04/25 07:25 Family History Mother FH: multiple miscarriages or stillbirths 2 MISCARRIAGES Hypertension Breast cancer, Onset Age: 30 Grandmother FH: multiple miscarriages or stillbirths MATERNAL Aunt FH: multiple miscarriages or stillbirths Other Anxiety Depression Surgical History H/O section History of elective Social History adopted: No household members: significant other and children number of children: 1 current occupational status: unemployed current occupation: [employer] current occupational exposures/hazards: No pets and animals: Yes pets and animals: dog(s) history of recent travel: Yes ( - May 2024) out of state: Yes sexually active: Yes Smoking Status: Never smoker alcohol intake: never substance use type: does not use well-balanced diet: rarely or never caffeine: Yes Type: carbonated beverages eating out: 1-3 times/week during the past year weight has: remained stable what type of physical activity do you participate in: walking frequency: 3-4 times per week duration: 15-30 minutes/day margoth/restoration: None seatbelt use: always do you feel safe at home: Yes additional social history: BF Jose- eJsse History 3 Elective abortions 1 Hx Para 1 Spontaneous abortions Hx # Term Pregnancies Ectopic pregnancies Hx # Pregnancies Multiple births # of living children 1 Past Pregnancies Del. Date Name GA/Weeks Outcome Route Bth Weight Infant Gen Labor Lgth Anesthesia [facility] FOB 07/14/23 Laylah 39 live - full term 7lbs 8oz Female spinal W CH JV Jose Delivery Date: 07/14/23 Last Updated by: Maude Ojeda Breech Visit Details Expected Delivery Route/Plan prior section. undecided about . Plans Covid status: [] Flu vaccine: [] Tdap vaccine: [] Rhogam: [] LARC form signed: [] Problem list reviewed and updated with the most current plan of care details and appropriate orders placed. Relevant counseling for the gestational age provided. Continue routine care and follow up unless otherwise noted in visit notes/problem list details OB Flowsheet Initial Weight: Not Recorded Date -?-?-?-?-?-?-?-?-?-?-?-?- EGA Weight BP Urine Prot -?-?-?-?-?-?-?-?-?-?-?-?- Glucose FHR FuHt Pres Dilation -?-?-?-?-?-?-?-?-?-?-?-?- Effaced St Visit Note 08/17/24 -?-?-?-?-?-?-?-?-?-?-?-?- 10w 4d 155 lb 110/76 -?-?-?-?-?-?-?-?-?-?-?-?- 168 -?-?-?-?-?-?-?-?-?-?-?-?- JV- CRL consiste nt with LMP. 3.8 cm. desires NIPT. family does not know she is and wants to keep it a secret until osvaldo. undecided if wants a . prior delivered for breech and cholestasis of . 09/14/24 -?-?-?-?-?-?--?-?-?-?-?-?- 14w 4d 155 lb 110/71 Negative -?-?-?-?-?-?-?-?-?-?-?-?- Negative 155 -?-?-?-?-?-?-?-?-?-?-?-?- KW- no vb/crampi ng. MFM US ordered. 10/16/24 -?-?-?-?-?-?-?-?-?-?-?-?- 19w 1d 160 lb 102/59 Negative -?-?-?-?-?-?-?-?-?-?-?-?- Negative 160 -?-?-?-?-?-?-?-?-?-?-?-?- KW- patient want ing R c/s with JV. no vb/lof/ctx. some fm. FHT and movement noted on handheld US. 11/13/24 -?-?-?-?-?-?-?-?-?-?-?-?- 23w 1d 167 lb 8 oz 110/78 Nega tive -?-?-?-?-?-?-?-?-?-?-?-?- Negative 155 -?-?-?-?-?-?-?-?-?-?-?-?- JV- patient comp lains of itching of hands and feet. She states that her anxi ety is high. She is undecided if she wants to because of fear of the incision opening. JV- patient complains of itc joseph of hands and feet. She states that her anxiety is high. She is undecided if she wants to because of fear of the incision opening. ordering bile acids and CMP. starting vistaril. 12/09/24 -?-?-?-?-?-?-?-?-?-?-?-?- 26w 6d 174 lb 2 oz 103/68 Nega tive -?-?-?-?-?-?-?-?-?-?-?-?- Negative 150 27 -?-?-?-?-?-?-?-?-?-?-?-?- SM- no vb lof go od fm no regular ctx discussed anxiety and tolac 12/25/24 -?-?-?-?-?-?-?-?-?-?-?-?- 29w 1d 177 lb 103/68 Negative -?-?-?-?-?-?-?-?-?-?-?-?- Negative 140 29 -?-?-?-?-?-?-?-?-?-?-?-?- KW- no vb/lof/ct x. good fm. decided on Repeat c/s. LARC and declines tdap today. discussed anxiety 01/08/25 -?-?-?-?-?-?-?-?-?-?-?-?- 31w 1d 181 lb 2 oz 123/81 Nega tive -?-?-?-?-?-?-?-?-?-?-?-?- Negative 137 31 -?-?-?-?-?-?-?-?-?-?-?-?- JV- having worse ramesh itching of hands and feet. will rpt cholestasis labs. plan for growth scan also. rpt cs is scheduled. 01/12/25 -?-?-?-?-?-?-?-?-?-?-?-?- 31w 5d 183 lb 114/79 -?-?-?-?-?-?-?-?-?-?-?-?- 135 32 -?-?-?-?-?-?-?-?-?--?-?-?- SM- co left side d pain wrapping around her back, RRR CTAB feels achy and crampy intermittently, no vb lof good fm no regular ctx. ua done and sent 01/22/25 -?-?-?-?-?-?-?-?-?-?-?-?- 33w 1d 184 lb 108/71 Negative -?-?-?-?-?-?-?-?-?-?-?-?- Negative 137 33 -?-?-?-?-?-?-?-?-?-?-?-?- KW- no vb/lof/ct x. good fm. doing well. questions answered 02/02/25 -?-?-?-?-?-?-?-?-?-?-?-?- 34w 5d 184 lb 2 oz 86/51 Nega tive -?-?-?-?-?-?-?-?-?-?-?-?- Negative 144 35 -?-?-?-?-?-?-?-?-?-?-?-?- JV- pt states th at her hands and feet are still itching. will rpt bile acids and cmp. is also hypotensive today and will check a cbc
--- NOTE | 2025-02-04 11:01 | OB.TRI.NOTE ---
HPI - General HPI Narrative SMITH LINDSEY, is a 24 F who presents for headache and lower abdominal cramping. Patient denies any vaginal bleeding or abnormal discharge. BPP shows 8 out of 8. Patient states her headache is like a migraine which she gets on and off. Maternal Data Information SOLANGE Calculator Estimated Delivery Date Method Current WG Current Estimate 03/11/25 LMP (Certain) 35w 1d Other Estimates 03/10/25 Ultrasound #1 35w 2d PFSH PFSH Medical History Cholestasis during delivery delivered Vaginal discharge Amenorrhea Hx of one miscarriage Family history of breast cyst HTN (hypertension) Breast lump Home Medications ?Medication ?Instructions ?Recorded ?Last Taken ?Type docosahexaenoic acid 200 mg 200 mg PO DAILY 08/07/24 02/03/25 History capsule ( DHA) famotidine 20 mg tablet (Pepcid AC) 20 mg PO QHS PRN heartburn #30 tabs 12/01/24 Unknown Rx hydroxyzine pamoate 50 mg capsule 50 mg PO TID-QID PRN anxiety #60 12/09/24 Unknown Rx caps Allergy/AdvReac Type Severity Reaction Status Date / Time No Known Allergies Allergy Verified 02/04/25 07:25 Family History Mother FH: multiple miscarriages or stillbirths 2 MISCARRIAGES Hypertension Breast cancer, Onset Age: 30 Grandmother FH: multiple miscarriages or stillbirths MATERNAL Aunt FH: multiple miscarriages or stillbirths Other Anxiety Depression Surgical History H/O section History of elective Social History adopted: No household members: significant other and children number of children: 1 current occupational status: unemployed current occupation: [employer] current occupational exposures/hazards: No pets and animals: Yes pets and animals: dog(s) history of recent travel: Yes ( - May 2024) out of state: Yes sexually active: Yes Smoking Status: Never smoker alcohol intake: never substance use type: does not use well-balanced diet: rarely or never caffeine: Yes Type: carbonated beverages eating out: 1-3 times/week during the past year weight has: remained stable what type of physical activity do you participate in: walking frequency: 3-4 times per week duration: 15-30 minutes/day margoth/zoroastrian: None seatbelt use: always do you feel safe at home: Yes additional social history: BF Dora Molina History 3 Elective abortions 1 Hx Para 1 Spontaneous abortions Hx # Term Pregnancies Ectopic pregnancies Hx # Pregnancies Multiple births # of living children 1 Past Pregnancies Del. Date Name GA/Weeks Outcome Route Bth Weight Infant Gen Labor Lgth Anesthesia Del Locatn Provider FOB 07/14/23 Layla 39 live - full term 7lbs 8oz Female spinal [facility] JV Jose Delivery Date: 07/14/23 Last Updated by: Maude Ojeda Breech Visit Details Expected Delivery Route/Plan prior section. undecided about . Plans Covid status: [] Flu vaccine: [] Tdap vaccine: [] Rhogam: [] LARC form signed: [] Problem list reviewed and updated with the most current plan of care details and appropriate orders placed. Relevant counseling for the gestational age provided. Continue routine care and follow up unless otherwise noted in visit notes/problem list details OB Flowsheet Initial Weight: Not Recorded Date <del>?</del> EGA Weight BP Urine Prot <del>?</del> Glucose FHR FuHt Pres Dilation <del>?</del> Effaced St Visit Note 08/17/24 <del>?</del> 10w 4d 155 lb 110/76 <del>?</del> 168 <del>?</del> JV- CRL consistent with LMP. 3.8 cm. desires NIPT. family does not know she is and wants to keep it a secret until osvaldo. undecided if wants a . prior delivered for breech and cholestasis of . 09/14/24 <del>?</del> 14w 4d 155 lb 110/71 Negative <del>?</del> Negative 155 <del>?</del> KW- no vb/cramping. MFM US ordered. 10/16/24 <del>?</del> 19w 1d 160 lb 102/59 Negative <del>?</del> Negative 160 <del>?</del> KW- patient wanting R c/s with JV. no vb/lof/ctx. some fm. FHT and movement noted on handheld US. 11/13/24 <del>?</del> 23w 1d 167 lb 8 oz 110/78 Negative <del>?</del> Negative 155 <del>?</del> JV- patient complains of itching of hands and feet. She states that her anxiety is high. She is undecided if she wants to because of fear of the incision opening. JV- patient complains of itching of hands and feet. She states that her anxiety is high. She is undecided if she wants to because of fear of the incision opening. ordering bile acids and CMP. starting vistaril. 12/09/24 <del>?</del> 26w 6d 174 lb 2 oz 103/68 Negative <del>?</del> Negative 150 27 <del>?</del> SM- no vb lof good fm no regular ctx discussed anxiety and tolac 12/25/24 <del>?</del> 29w 1d 177 lb 103/68 Negative <del>?</del> Negative 140 29 <del>?</del> KW- no vb/lof/ctx. good fm. decided on Repeat c/s. LARC and declines tdap today. discussed anxiety 01/08/25 <del>?</del> 31w 1d 181 lb 2 oz 123/81 Negative <del>?</del> Negative 137 31 <del>?</del> JV- having worsening itching of hands and feet. will rpt cholestasis labs. plan for growth scan also. rpt cs is scheduled. 01/12/25 <del>?</del> 31w 5d 183 lb 114/79 <del>?</del> 135 32 <del>?</del> SM- co left sided pain wrapping around her back, RRR CTAB feels achy and crampy intermittently, no vb lof good fm no regular ctx. ua done and sent 01/22/25 <del>?</del> 33w 1d 184 lb 108/71 Negative <del>?</del> Negative 137 33 <del>?</del> KW- no vb/lof/ctx. good fm. doing well. questions answered 02/02/25 <del>?</del> 34w 5d 184 lb 2 oz 86/51 Negative <del>?</del> Negative 144 35 <del>?</del> JV- pt states that her hands and feet are still itching. will rpt bile acids and cmp. is also hypotensive today and will check a cbc Physical Exam Const alert, oriented x3 and no apparent distress HEENT Head and Scalp: normocephalic and atraumatic Eyes EOMs intact bilaterally Neck full ROM and no lymphadenopathy Chest inspection of chest normal Resp normal respiratory effort GI GI Narrative: gravid, abdomen nontender, AGA Neuro no focal motor deficits Motor Exam: clonus absent NST FHR Rate Baby A Baseline: 140 Variability:: Moderate Accelerations:: 15 x 15 Decelerations:: None NST Reactive:: Yes FHR Category:: Category I Uterine Activity:: no regular Assessment & Plan (1) Abdominal pain: (2) : QUALIFIERS: Weeks of gestation: 34 weeks Qualified Code(s): Z3A.34 - 34 weeks gestation of COMMENT: nl anatomy, Discussed genetic/carrier testing - NIPT low risk (carrier done with prior ) (3) Supervision of high-risk : COMMENT: PRR , SOLANGE 03/11/25, PC: Roselyn BF: Jose PLAN: Plan monitoring bpp done dc home Charges/Coding Procedures Urinary/Genital [id number]: 09362-64 non-stress test Interp Multi Select Codes Visit Charges Office Visit/Consults: 44097 OV L3 Est 20min
[2025-02-04] MEDS: Acetaminophen/Butalbital/Caffe 1 Tablet 2 TABLET PO (11:13)
== END 2025-02-04 11:30 | disposition home or self-care (01) ==
LOC: WPOUT 06:38 → WP 06:39
PROVIDERS: PCP Internal Medicine; Referring Provider Obstetrics & Gynecology; Visit Provider Obstetrics & Gynecology
DX: O99.891 Other specified diseases and conditions complicating pregnancy (principal); R10.9 Unspecified abdominal pain; Z3A.34 34 weeks gestation of pregnancy; R51.9 Headache, unspecified; O16.3 Unspecified maternal hypertension, third trimester
CPT/HCPCS: 59025; 59050; 76819; 81001; 87086; 99221; G0378

== ENCOUNTER → 2025-02-10 | Outpatient (CLI) | payer MEDICAID, SELFPAY ==
[2025-02-10 17:07] LABS: Absolute Lymphocyte Count 1.97 X10^3/uL (0.83-4.51); Absolute Neutrophil Count 7.5 X10^3/uL (2.0-7.7); Basophil# 0.02 X10^3/uL; Basophil% 0.2 % (0-1); Eosinophil# 0.08 X10^3/uL; Eosinophils% 0.8 % (0-5); Hemoglobin 10.9 g/dL (12.0-15.0); Lymphocyte # 1.97 X10^3/ul (0.83-4.51); Lymphocyte % 18.8 % (19-41); Mean Corpuscular Hgb 28.6 pg (27.0-32.0); Mean Corpuscular Volume 86.6 fL (81-99); Monocyte# 0.82 X10^3/uL; Monocyte% 7.8 % (0-10); NRBC Flagged by Analyzer 0 % (0-5); Neutrophil % 71.5 % (47-70); Platelet Count 260 K/mm3 (150-450); RBC Distribution Width CV 13.2 % (11.6-14.6); RBC Distribution Width SD 41.8 fl (35.1-43.9); Red Blood Count 3.81 M/mm3 (4.2-5.4); White Blood Count 10.5 K/mm3 (4.4-11.0)
[2025-02-10 17:52] LABS: Protein, Urine (Random) < 6.0 mg/dL (0.0-12.0); Protein:Creat Ratio UNABLE TO CALCULATE mg/g CRE (0-200)
[2025-02-10 17:53] LABS: ALB/GLOB Ratio 1.4 RATIO (0.9-2.4); AST(SGOT) 24 U/L (<=31); Alanine Aminotransfer ALT/SGPT 20 U/L (<=34); Albumin, Serum 3.7 g/dL (3.5-5.0); Alkaline Phosphatase 90 U/L (35-104); Anion Gap 13 (5-15); BUN 5 mg/dL (4-19); BUN/Creat Ratio 10.2 RATIO (10-20); Calcium,Total 7.1 mg/dL (7.6-11.0); Carbon Dioxide 18.8 mmol/L (21.0-32.0); Chloride 103 mmol/L (98-108); Creatinine, Serum 0.47 mg/dL (0.70-1.20); EST Glomerular Filtration Rate 134 (>60); Globulin 2.7 g/dL (2.2-4.2); Glucose 82 mg/dL (70-99); Potassium 3.9 mmol/L (3.3-5.1); Protein, Total 6.5 g/dL (5.9-8.4); Sodium Level 135 mmol/L (133-145); Total Bilirubin 0.52 mg/dL (0.00-1.30)
== END | disposition home or self-care (01) ==
PROVIDERS: PCP Internal Medicine; Referring Provider Obstetrics & Gynecology; Visit Provider Obstetrics & Gynecology
DX: L29.9 Pruritus, unspecified (principal); R10.9 Unspecified abdominal pain
CPT/HCPCS: 36415; 80053; 82570; 84156; 85025; 87077; 87086; 87088

== ENCOUNTER → 2025-02-19 | Outpatient (CLI) | payer MEDICAID, SELFPAY ==
--- NOTE | 2025-02-19 11:57 | US_ITS ---
PROCEDURE: BIOPHYSICAL PROF W/O NON STRES REASON FOR EXAM: ITCHING HANDS High-risk . TECHNIQUE: A biophysical profile examination was performed. COMPARISON: Comparison is made with prior study dated February 04, 2025. FINDINGS: position: Cephalic heart rate: 153 beats per minute Amniotic fluid: Within normal limits Largest fluid pocket: 4.1 cm Amniotic fluid index: 10.1 Placenta location: Anterior and not low-lying. Age by LMP: 37 weeks and 2 days. Biophysical profile: Breathing movements 2 Gross body movements 2 tone 2 Amniotic Fluid volume 2 Total score: 8/8 US/Biophysical Prof W/O Non Stres IMPRESSION: Normal biophysical profile of 8/8 Reading Location: [facility]IR[facility]
== END | disposition home or self-care (01) ==
LOC: US 11:57
PROVIDERS: PCP Internal Medicine; Referring Provider Advanced Practice Midwife; Visit Provider Advanced Practice Midwife
DX: O99.719 Diseases of the skin and subcutaneous tissue complicating pregnancy, unspecified trimester (principal); L29.9 Pruritus, unspecified; Z3A.00 Weeks of gestation of pregnancy not specified
CPT/HCPCS: 76819

== ENCOUNTER → 2025-02-26 | Outpatient (CLI) | payer MEDICAID, SELFPAY ==
--- NOTE | 2025-02-26 12:25 | US_ITS ---
PROCEDURE: BIOPHYSICAL PROF W/O NON STRES 02/26/2025 REASON FOR EXAM: ITCHING HANDS TECHNIQUE: A biophysical profile examination was performed. COMPARISON: Comparison is made with prior study dated February 19, 2025. FINDINGS: position: Cephalic heart rate: 148 beats per minute Amniotic fluid: Within normal limits. Largest fluid pocket: 4.4 cm. Amniotic fluid index: 9.6. Placenta location: Anterior and not low-lying. Placenta grade: 2 Age by LMP: 38 weeks and 2 days. Biophysical profile: Breathing movements: 2 Gross body movements: 2 tone: 2 Amniotic fluid volume: 2 Total score: 8/8 US/Biophysical Prof W/O Non Stres IMPRESSION: Biophysical profile score of 8/8. Normal examination. Reading Location: [facility]
== END | disposition home or self-care (01) ==
LOC: US 12:25
PROVIDERS: PCP Internal Medicine; Referring Provider Advanced Practice Midwife; Visit Provider Advanced Practice Midwife
DX: O99.719 Diseases of the skin and subcutaneous tissue complicating pregnancy, unspecified trimester (principal); L29.9 Pruritus, unspecified; Z3A.00 Weeks of gestation of pregnancy not specified
CPT/HCPCS: 76819

== ENCOUNTER 2025-03-04 09:52 | Inpatient (IN) | payer MEDICAID, SELFPAY ==
[2025-03-04] VITALS (14 sets, daily range): BP systolic 101–130; BP diastolic 50–77; PULSE 62–99; RESP 15–22; TEMP 36.1–36.7; O2SAT 97–100; BMI 33.5
--- NOTE | 2025-03-04 08:14 | HP.PCM.OB_ITS ---
HPI - General HPI Narrative SMITH LINDSEY is a 24y/o @ 39 weeks 0 days who presents for a repeat section Maternal Data Information SOLANGE Calculator Estimated Delivery Date Method Current WG Current Estimate 03/11/25 LMP (Certain) 39w 0d Other Estimates 03/10/25 Ultrasound #1 39w 1d PFSH PFSH Medical History Cholestasis during delivery delivered Vaginal discharge Amenorrhea Hx of one miscarriage Family history of breast cyst HTN (hypertension) Breast lump Home Medications ?Medication ?Instructions ?Recorded ?Last Taken ?Type docosahexaenoic acid 200 mg 200 mg PO DAILY 08/07/24 0 02/03/25 History capsule ( DHA) hydroxyzine pamoate 50 mg capsule 50 mg PO TID-QID PRN anxiety #60 12/09/24 Unknown Rx caps metoclopramide HCl 10 mg tablet 10 mg PO TID nausea #9 0 tabs 02/10/25 Unknown Rx (Reglan) buspirone 15 mg tablet 15 mg PO TID PRN anxiety #30 tabs 02/26/25 Unknown Rx famotidine 20 mg tablet 20 mg PO QHS PRN for heartbu rn #30 02/26/25 Unknown Rx TABLETS Allergy/AdvReac Type Severity Reaction Status Date / Time No Known Allergies Allergy Verified 02/26/25 14:49 Family History Mother FH: multiple miscarriages or stillbirths 2 MISCARRIAGES Hypertension Breast cancer, Onset Age: 30 Grandmother FH: multiple miscarriages or stillbirths MATERNAL Aunt FH: multiple miscarriages or stillbirths Other Anxiety Depression Surgical History H/O section History of elective Social History adopted: No household members: significant other and children number of children: 1 current occupational status: unemployed current occupation: [employer] current occupational exposures/hazards: No pets and animals: Yes pets and animals: dog(s) history of recent travel: Yes ( - May 2024) out of state: Yes sexually active: Yes Smoking Status: Never smoker alcohol intake: never substance use type: does not use well-balanced diet: rarely or never caffeine: Yes Type: carbonated beverages eating out: 1-3 times/week during the past year weight has: remained stable what type of physical activity do you participate in: walking frequency: 3-4 times per week duration: 15-30 minutes/day margoth/samaritan: None seatbelt use: always do you feel safe at home: Yes additional social history: BF Jose- Jesse History 3 Elective abortions 1 Hx Para 1 Spontaneous abortions Hx # Term Pregnancies Ectopic pregnancies Hx # Pregnancies Multiple births # of living children 1 Past Pregnancies Del. Date Name GA/Weeks Outcome Route Bth Weight Infant Gen Labor Lgth Anesthesia Del Locatn Provider FOB 07/14/23 Laylah 39 live - full term 7lbs 8oz Female spinal [facility] JV Jose Delivery Date: 07/14/23 Last Updated by: Maude Ojeda Breech Visit Details Expected Delivery Route/Plan prior section. undecided about . Plans Covid status: [] Flu vaccine: [] Tdap vaccine: [] Rhogam: [] LARC form signed: [] Problem list reviewed and updated with the most current plan of care details and appropriate orders placed. Relevant counseling for the gestational age provided. Continue routine care and follow up unless otherwise noted in visit notes/problem list details OB Flowsheet Initial Weight: 155 lb Date -?-?-?-?-?-?-?-?-?-?-?-?- EGA Weight BP Urine Prot -?-?-?-?-?-?-?-?-?-?-?-?- Glucose FHR FuHt Pres Dilation -?-?-?-?-?-?-?-?-?-?-?-?- Effaced St Visit Note 08/17/24 -?-?-?-?-?-?-?-?-?-?-?-?- 10w 4d 155 lb (+0 oz) 110/76 -?-?-?-?-?-?-?-?-?-?-?-?- 168 -?-?-?-?-?-?-?-?-?-?-?-?- JV- CRL consiste nt with LMP. 3.8 cm. desires NIPT. family does not know she is and wants to keep it a secret until osvaldo. undecided if wants a . prior delivered for breech and cholestasis of . 09/14/24 -?-?-?-?-?-?-?-?-?-?-?-?- 14w 4d 155 lb (+0 oz) 110/71 Negative -?-?-?-?-?-?-?-?-?-?-?-?- Negative 155 -?-?-?-?-?-?-?-?-?-?-?-?- KW- no vb/crampi ng. M US ordered. 10/16/24 -?-?-?-?-?-?-?-?-?-?-?-?- 19w 1d 160 lb (+5 lb) 102/59 Negative -?-?-?-?-?-?-?-?-?-?-?-?- Negative 160 -?-?-?-?-?-?-?-?-?-?-?-?- KW- patient want ing R c/s with JV. no vb/lof/ctx. some fm. FHT and movement noted on handheld US. 11/13/24 -?-?-?-?-?-?-?-?-?-?-?-?- 23w 1d 167 lb 8 oz (+12 lb 8 oz) 110/78 Negative -?-?-?-?-?-?-?-?--?-?-?-?- Negative 155 -?-?-?-?-?-?-?-?-?-?-?-?- JV- patient comp lains of itching of hands and feet. She states that her anxiety is high. She is undecided if she wants to because of fear of the incision opening. JV- patient complains of itc joseph of hands and feet. She states that her anxiety is high. She is undecided if she wants to because of fear of the incision opening. ordering bile acids and CMP. starting vistaril. 12/09/24 -?-?-?-?-?-?-?-?-?-?-?-?- 26w 6d 174 lb 2 oz (+19 lb 2 oz) 103/68 Negative -?-?-?-?-?-?-?-?-?-?-?-?- Negative 150 27 -?-?-?-?-?-?-?-?-?-?-?-?- SM- no vb lof go od fm no regular ctx discussed anxiety and tolac 12/25/24 -?-?-?-?-?-?-?-?-?-?-?-?- 29w 1d 177 lb (+22 lb) 103/68 Negative -?-?-?-?-?-?-?-?-?-?-?-?- Negative 140 29 -?-?-?-?-?-?-?-?-?-?-?-?- KW- no vb/lof/ct x. good fm. decided on Repeat c/s. LARC and declines tdap today. discussed anxiety 01/08/25 -?-?-?-?-?-?-?-?-?-?-?-?- 31w 1d 181 lb 2 oz (+26 lb 2 oz) 123/81 Negative -?-?-?-?-?-?-?-?-?-?-?-?- Negative 137 31 -?-?-?-?-?-?-?-?-?-?-?-?- JV- having worse ramesh itching of hands and feet. will rpt cholestasis labs. plan for growth scan also. rpt cs is scheduled. 01/12/25 -?-?-?-?-?-?-?-?-?-?-?-?- 31w 5d 183 lb (+28 lb) 114/79 -?-?-?-?-?-?-?-?-?-?-?-?- 135 32 -?-?-?-?-?-?-?-?-?-?-?-?- SM- co left side d pain wrapping around her back, RRR CTAB feels achy and crampy intermittently, no vb lof good fm no regular ctx. ua done and sent 01/22/25 -?-?-?-?-?-?-?-?-?-?-?-?- 33w 1d 184 lb (+29 lb) 108/71 Negative -?-?-?-?-?-?-?-?-?-?-?-?- Negative 137 33 -?-?-?-?-?-?-?-?-?-?-?-?- KW- no vb/lof/ct x. good fm. doing well. questions answered 02/02/25 -?-?-?-?-?-?-?-?-?-?-?-?- 34w 5d 184 lb 2 oz (+29 lb 2 oz) 86/51 Negative -?-?-?-?-?-?-?-?-?-?-?-?- Negative 144 35 -?-?-?-?-?-?-?-?-?-?-?-?- JV- pt states th at her hands and feet are still itching. will rpt bile acids and cmp. is also hypotensive today and will check a cbc 02/10/25 -?-?-?-?-?-?-?-?-?-?-?-?- 35w 6d 187 lb (+32 lb) 187 lb (+32 lb) 109/70 Negative -?-?-?-?-?-?-?-?-?-?-?-?- Negative 145 -?-?-?-?-?-?-?-?-?-?-?-?- SM- no vb lof go od fm no regular ctx SM- no vb lof good fm no reg ular ctx still having intense itchin gin hands and feet especially at night, ursodiol, hydroxyzine and benadyl haven't helped. cold compresses haven't helped. she has had dizzy episodes and near syncope x 1. having some migraines. normal to low bps. will repeat cbc cmp check ua culture and urine protein. recommend tylenol and reglan for migraines. 02/19/25 -?-?-?-?-?-?-?-?-?-?-?-?- 37w 1d 189 lb 2 oz (+34 lb 2 oz) 97/65 Negative -?-?-?-?-?-?-?-?-?-?-?-?- Negative 140 37 0 -?-?-?-?-?-?-?-?-?-?-?-?- LC- no vb/ctx/lo f. good fm. intense itching not resolved. bile acids 6.4 yesterday with normal LFT. twice weekly BPPs have been normal. has rpt c/s scheduled, will continue with weekly lft/bile acids and actigall 300mg tid LC- no vb/ctx/lof. good fm. intense itching not resolved. bile acids 6.4 yesterday with normal LFT. twice weekly BPPs have been normal. has rpt c/s scheduled, will continue with weekly lft/bile acids and actigall 300mg tid. consulted with [facility], agrees with mgmt 02/26/25 -?-?-?-?-?-?-?-?-?-?-?-?- 38w 1d 189 lb 8 oz (+34 lb 8 oz) 111/78 Negative -?-?-?-?-?-?-?-?-?-?-?-?- Negative 139 38 -?-?-?-?-?-?-?-?-?-?-?-?- JV_ still itchin g. bile acids have been normal x 3. delivery planned for 39 weeks. (in 6 days) buspar given for anxiety. bpp 07/09 today ROS Constitutional Constitutional: Denies change in weight, fatigue, fever(s), headache(s), poor appetite or weakness Eyes Eyes: Denies blurry vision, change in vision, seeing flashes or spots in vision ENT HEENT: Denies dizziness, headache(s), loss taste/smell or sore throat Cardiovascular Cardiovascular: Denies chest pain, dizziness, dyspnea, irregular heart rhythm, leg edema, palpitations, rapid heart rate or vomiting Respiratory/Chest Respiratory/Chest: Denies chest tightness, cough, dyspnea or breast pain Gastrointestinal Gastrointestinal: Denies abdominal pain, anorexia, constipation, cramping, diarrhea, hemorrhoids, vomiting or weight changes Genitourinary Genitourinary: Denies dysuria, flank pain, genital lesions, genital pain, urinary frequency or urinary urgency Musculoskeletal Musculoskeletal: Denies back pain, difficulty walking, joint pain, limited range of motion, muscle cramps or numbness Integumentary Integumentary: Denies lesions or unusual bruising Neurologic Neurologic: Denies abnormal movements, abnormal speech, dizziness, numbness, seizure-like activity or syncope Psychiatric Psychiatric: Denies anxiety, behavioral changes, change in appetite, change in libido, cognitive impairment, confusion, depression, difficulty concentrating, hallucinations or suicidal thoughts Endocrine Endocrinology: Denies excessive sweating, polydipsia or polyuria Hematologic/Lymphatic Hematologic/Lymphatic: Denies easy bleeding, easy bruising or lymphadenopathy Allergic/Immunologic Allergic/Immunologic: Denies itchy eyes, lip swelling, seasonal rhinorrhea, rhinitis, throat swelling, tongue swelling, eczemia, wheezing or asthma Physical Exam Const alert, oriented x3, no apparent distress and healthy appearing General Appearance: cooperative; Negative for anxious HEENT normocephalic Face and Sinus: normal facial exam Eyes EOMs intact bilaterally and no scleral icterus General Eye: normal appearance of both eyes Neck full ROM and supple Lymph Lymphatic: no lymphadenopathy noted Chest Chest: abnormal inspection of the chest Resp normal respiratory effort Effort and Inspection: able to speak in complete sentences Cardio regular rate GI soft to palpation and non-tender Inspection: gravid Palpation: soft; Negative for tender Back/Spine no CVA tenderness Extremity normal to inspection, full ROM and no clubbing, cyanosis or edema General Extremity: Negative for calf tenderness or edema Skin Lesions: no lesions Rashes: no rashes Psych mental status grossly normal Labs Labs Labs: Blood Type O POSITIVE Antibody Screen NEGATIVE Hct 33.0 % (37-47) L Hgb 10.9 g/dL (12.0-15.0) L Obstetrics Ultrasound Syphilis Total Ab Non-reactive Rubella IgG Antibody Reactive (Nonreactive) Hep Bs Antigen Non-Reactive (Nonreactive) Hepatitis C Antibody Non-Reactive (Nonreactive) Chlamydia DNA (ANNIA) Negative (Negative) N.gonorrhoeae DNA (ANNIA) Negative (Negative) HIV 1&2 Antibody Non-Reactive (Nonreactive) Glucose 1 Hr 50 gm 100 mg/dL (70-140) Miscellaneous Test Assessment & Plan (1) Positive GBS test: COMMENT: PCN in labor (2) Abdominal pain: (3) Hypotension: (4) Itching of both hands: COMMENT: initial bile acids normal. repeat ordered 02/10. BPP 2xweek. continue weekly lft/bile acids. actigall 300mg tid. (5) History of delivery, currently : COMMENT: R C/S with JV on 03/04 @ 12 (6) Supervision of high-risk : COMMENT: PRR , SOLANGE 03/11/25, PC: Roselyn, BF: Jose (7) : QUALIFIERS: Weeks of gestation: 38 weeks Qualified Code(s): Z3A.38 - 38 weeks gestation of COMMENT: nl anatomy, Discussed genetic/carrier testing - NIPT low risk (carrier done with prior ) (8) Anxiety: COMMENT: enc counseling. hand out given. vistaril PRN. celexa in the past PLAN: Plan After discussing the patient's diagnosis and treatment plan options, patient wishes to proceed with surgical management. I have discussed with the patient the risks, benefits, and alternatives of the procedure which include but are not limited to risks of anesthesia, bleeding, infection, possible damage to bowel, bladder, or surrounding vasculature which could lead to additional surgery to evaluate any complications. Patient agrees to procedure and wishes to proceed. ACOG/uptodate references given for additional information regarding procedure. plan for repeat section today
[2025-03-04] MEDS: Lactated Ringers 1,000 ML 999 ML IV ×2 (10:10→17:45)
[2025-03-04 10:34] LABS: Absolute Lymphocyte Count 2.04 X10^3/uL (0.83-4.51); Basophil# 0.02 X10^3/uL; Basophil% 0.2 % (0-1); Eosinophil# 0.03 X10^3/uL; Eosinophils% 0.3 % (0-5); Hematocrit 33.1 % (37-47); Hemoglobin 11.1 g/dL (12.0-15.0); Lymphocyte # 2.04 X10^3/ul (0.83-4.51); Lymphocyte % 18.7 % (19-41); Mean Corp Hgb Conc 33.5 g/dL (32-36); Mean Corpuscular Hgb 28.2 pg (27.0-32.0); Mean Corpuscular Volume 84.2 fL (81-99); Mean Platelet Vol. 9.6 fl (6.2-12.0); Monocyte# 0.75 X10^3/uL; Monocyte% 6.9 % (0-10); NRBC Flagged by Analyzer 0 % (0-5); Neutrophil # 7.99 X10^3/uL (2.7-7.7); Neutrophil % 73.1 % (47-70); Platelet Count 248 K/mm3 (150-450); RBC Distribution Width CV 13.6 % (11.6-14.6); RBC Distribution Width SD 41.9 fl (35.1-43.9); Red Blood Count 3.93 M/mm3 (4.2-5.4); White Blood Count 10.9 K/mm3 (4.4-11.0)
[2025-03-04] MEDS: Acetaminophen 500 MG Tablet 1000 MG PO ×2 (10:53→18:00)
[2025-03-04 11:07] LABS: Syphilis Antibodies Nonreactive (Nonreactive)
[2025-03-04] MEDS: Lactated Ringers 1,000 ML 150 ML IV (11:20)
[2025-03-04] MEDS: Metoclopramide 10 MG Tablet PO (11:45)
[2025-03-04] MEDS: Sodium Citrate/Citric Acid 30 ML UDC PO (11:45)
[2025-03-04] MEDS: Famotidine 200 MG/20 ML MDV 20 MG in 0.9% Normal Saline (Pres. free 8 ML 300 MG IV (12:15)
--- NOTE | 2025-03-04 12:24 | DCINST_ITS ---
Discharge Instructions Diet Discharge Diet: No restrictions DC O2, CPAP, BIPAP needs Home O2 Discharge instructions: No Dressing / Incision Discharge Activity: May Not Drive (for 2 weeks or while taking narcotic pain medications.), May Shower and May Take a Tub Bath (in 7 days.) May resume sexual activity in: 4-6 weeks Weight Bearing Status: Full weight bearing Lifting Restrictions: 20 pounds Dressing / Incision Call your doctor if your incision/area has: Continuous Slow Oozing, Sudden Increased Bleeding, Increased Pain/ Swelling, Increased Redness and Foul Smelling Discharge Call your doctor if you observe: Fever of 101 or Higher and Using more than 1 pad per hour Suture Line Care: Avoid Pulling/Pushing and Avoid Pinching/Bending Cleanse incision/area with: Soap & Water and Keep Dressing Clean & Dry Follow Up Care Please Follow Up With: Fina Stark DO When: Call [phone] to make an appointment for an incision check in 1-2 weeks. Test Results: Test results from this visit will be discussed in further detail at your follow- up appointment, if applicable. Discharge Plan Admission Admit Date/Time: 03/04/25 09:52 Primary Reason for Your Visit: Attending Provider: Fina Stark Primary Care Provider: Indira Mota Discharge Orders/Prescriptions Prescriptions: New ibuprofen 800 mg tablet 800 mg PO Q8H PRN (Reason: pain) Qty: 30 0RF oxycodone-acetaminophen [Percocet] 5-325 mg tablet 1 tab PO Q4H PRN (Reason: pain) 7 Days Qty: 20 0RF No Action DHA 200 mg capsule 200 mg PO DAILY Referrals / Follow Up: Indira Mota MD [Primary Care Provider] - Disposition Disposition (needs filled in before D/C Order can be placed): Home, Self Care
[2025-03-04] MEDS: Cefazolin 2 GM in Syringe IV (12:25)
--- NOTE | 2025-03-04 13:23 | OP.PCM_ITS ---
Assessment & Plan (1) Positive GBS test: COMMENT: PCN in labor (2) Hypotension: (3) Itching of both hands: COMMENT: initial bile acids normal. repeat ordered 02/10. BPP 2xweek. continue weekly lft/bile acids. actigall 300mg tid. (4) History of delivery, currently : COMMENT: R C/S with JV on 03/04 @ 12 (5) Supervision of high-risk : COMMENT: PRR , SOLANGE 03/11/25, PC: Roselyn, BF: Jose (6) : QUALIFIERS: Weeks of gestation: 38 weeks Qualified Code(s): Z3A.38 - 38 weeks gestation of COMMENT: nl anatomy, Discussed genetic/carrier testing - NIPT low risk (carrier done with prior ) (7) Anxiety: COMMENT: enc counseling. hand out given. vistaril PRN. celexa in the past Maternal Data Information SOLANGE Calculator Estimated Delivery Date Method Current WG Current Estimate 03/11/25 LMP (Certain) 39w 0d Other Estimates 03/10/25 Ultrasound #1 39w 1d Operative Report (OB) Details Procedure Type: low transverse Date of Procedure: 03/04/25 Procedure Start Time: 12:34 Procedure Stop Time: 13:15 Time of Delivery: 12:41 Pre-Operative Diagnosis: Repeat Elective Post-Operative Diagnosis: Same as Pre-operative diagnosis Classification: Scheduled Type of Anesthesia: Spinal Antibiotic Given: Ancef 2 grams IV x1 Drain: James to straight drain Estimated Blood Loss: 300cc Findings Description of surgery: The patient is a 24 y/o @ 39 weeks presented for repeat . Spinal anesthesia was placed without difficulty. James catheter was placed. The patient was placed in the dorsal supine position with leftward tilt. Patient was prepped and draped in the normal sterile fashion. Pfannenstiel skin incision was made with the scalpel and carried through to the underlying layer of fascia with the scalpel. Fascia was nicked in the midline and the incision extended laterally. The rectus bellies were dissected off superiorly and inferiorly with out complication both sharply and bluntly. The peritoneum was entered digitally. The incision was stretched and a low transverse uterine incision was made with the scalpel. The infant's head was delivered atraumatically followed by the anterior and posterior shoulders without complication the rest of the infant delivered. The cord was clamped and cut and the was handed off to awaiting nurse. The placenta was delivered spontaneously immediately following and was noted to be intact and have a three- vessel cord. The uterus was exteriorized cleared of all clots and debris, and the incision was closed in a double layer closure using #1 Vicryl and #1 Monocryl. The ovaries and fallopian tubes were noted to be within normal limits. The uterus was returned to the maternal abdomen and gutters were cleared of all clots and debris. The peritoneum was closed with 3-0 Monocryl in a running fashion. Fascia was closed with 0 PDS in a running fashion. Subcutaneous tissue was copiously irrigated and the skin was closed with 3-0 Monocryl in a subcuticular fashion. Mepilex dressing was applied without complication. Patient was taken to recovery in stable condition. It was discussed with the patient that based on the clinical information obtained during this encounter, combined with her history, at this time I would recommend repeat section for future deliveries if further pregnancies are desired. Surgical findings: viable femal , one loose nuchal cord, Cecy Presentation: Vertex Amniotic Membrane Rupture Type: Artificial Amniotic Fluid Description: Clear Placental Delivery Description: Spontaneous Placenta Disposition: [facility] Specimen collected: No Cord Vessel Description: 3 Vessels Cord Entanglement: Around neck x 1, loose Nuchal Cord Compression: Without compression A gender: Female (1 minute): 9 (5 minute): 9 Delayed Cord Clamping: Yes Chairman President And Chief Executive Officer composition professor: Yes Data Analyst Report Writer: Dottie Gonzalez Tasks completed by food and beverage assistant manager: Closing, Hemostasis: Clamp, Hemostasis: Tie and Retracting Additional logging assistant?: Yes Additional Certified Executive Chef #2: Roxanna Banks Tasks completed by logging assistant #2: Closing and Retracting Additional logging assistant?: No Complications Complications: No Procedures Urinary/Genital [id number]: 13915 delivery+ Care([facility])
[2025-03-04] MEDS: Oxytocin 15 Units/NS 250ml 15 UNITS/250 ML IV.SOLN 83 UNITS IV (13:40)
[2025-03-04] MEDS: Ketorolac 30 MG/ML Syringe IV ×2 (14:07→19:49)
[2025-03-04] MEDS: Ondansetron 4 MG/2 ML Vial IV (18:06)
[2025-03-04] MEDS: Lactated Ringers 1,000 ML 100 ML IV (18:07)
--- NOTE | 2025-03-04 18:20 | NURSING ---
Dr Dominguez notified of pt scanned and no urine in the bladder. Order for 1000 LR bolus along with 20mg Lasix IV x1. aware of watching output in reference to giving toradol.
[2025-03-04] MEDS: Furosemide 20 MG/2 ML VIAL IV (18:28)
[2025-03-05] MEDS: Acetaminophen 500 MG Tablet 1000 MG PO ×4 (00:07→18:49)
[2025-03-05] MEDS: Ketorolac 30 MG/ML Syringe IV ×2 (01:50→08:13)
[2025-03-05 01:55] VITALS: BP 112/65; PULSE 74; RESP 16; TEMP 36.8; O2SAT 99
[2025-03-05 05:00] VITALS: BP 114/58; PULSE 70; RESP 16; TEMP 36.8; O2SAT 99
[2025-03-05 07:59] VITALS: BP 104/66; PULSE 71; RESP 16; TEMP 36.1
[2025-03-05 08:10] LABS: Hematocrit 31.2 % (37-47); Hemoglobin 10.1 g/dL (12.0-15.0); Mean Corp Hgb Conc 32.4 g/dL (32-36); Mean Corpuscular Hgb 27.8 pg (27.0-32.0); Mean Platelet Vol. 9.8 fl (6.2-12.0); Platelet Count 225 K/mm3 (150-450); RBC Distribution Width CV 13.9 % (11.6-14.6); Red Blood Count 3.63 M/mm3 (4.2-5.4); White Blood Count 12.4 K/mm3 (4.4-11.0)
[2025-03-05] MEDS: 0.9% Saline Lock 10 ML Syringe IV (08:14)
--- NOTE | 2025-03-05 08:58 | PCM.PN.CNM ---
Subjective Subjective Patient doing well without complaints. Tolerating PO. Ambulating without difficulty, esteban pulled this AM, due to void. Feeding well. Denies chest pain, shortness of breath, calf pain/swelling, fevers, chills, lightheadedness. Objective Data Objective Data Vital Signs: Vital Signs Temp Pulse Resp BP Pulse Ox O2 Del Method 96.9 F L 71 16 104/66 99 Room Air 03/05/25 07:59 03/05/25 07:59 03/05/25 07:59 03/05/25 07:59 03/05/25 05:00 03/05/25 05:00 Oxygen Delivery Method Room Air Weight: 188 lb 14.978 oz Body Mass Index (BMI) 33.5 Intake & Output: Intake and Output for Last 24 Hours 03/03/25 03/04/25 03/05/25 23:59 23:59 23:59 Intake Total 3460 / 3460 1000 / 1000 Output Total 1850 / 1850 1950 / 1950 Balance 1610 / 1610 -950 / -950 Lab / Micro Data 03/05/25 07:55 Labs: Laboratory Results - last 24 hr 03/04/25 10:10: WBC 10.9, RBC 3.93 L, Hgb 11.1 L, Hct 33.1 L, MCV 84.2, MCH 28.2, MCHC 33.5, RDW Std Deviation 41.9, RDW Coeff of Dorota 13.6, Plt Count 248, MPV 9.6, Immature Gran % (Auto) 0.800, Neut % (Auto) 73.1 H, Lymph % (Auto) 18.7 L, [place] % (Auto) 6.9, Eos % (Auto) 0.3, Baso % (Auto) 0.2, Absolute Neuts (auto) 8.0 H, Absolute Lymphs (auto) 2.04, Nucleated RBC % 0, Syphilis Total Ab Nonreactive, Blood Type O POSITIVE, Antibody Screen NEGATIVE 03/05/25 07:55: WBC 12.4 H, RBC 3.63 L, Hgb 10.1 L, Hct 31.2 L, MCV 86.0, MCH 27.8, MCHC 32.4, RDW Std Deviation 43.0, RDW Coeff of Dorota 13.9, Plt Count 225, MPV 9.8 Physical Exam Const alert and oriented x3 Chest inspection of chest normal and inspection of breasts normal Resp normal respiratory effort, normal air movement and no retractions Effort and Inspection: able to speak in complete sentences Auscultation: clear to auscultation bilaterally Cardio regular rate and regular rhythm GI normal to inspection, nondistended, normoactive bowel sounds Uterus Palpation: uterus fundus firm Extremity normal to inspection, full ROM and no calf tenderness Skin no rashes or lesions noted Skin Narrative: dressing c/d/i Psych mental status grossly normal Assessment & Plan (1) Delivery by section: COMMENT: VERONICA c/s PLAN: s/p LTCS PPD # 2 1. routine post care 2. breast feeding- support given 3. rh positive 4. rubella immune 5. potential d/c ivone this evening if pain controlled and voided x2.
[2025-03-05] MEDS: Senna/Docusate Sodium 1 Tablet PO (10:11)
[2025-03-05 12:05] VITALS: BP 111/51; PULSE 77; RESP 16; TEMP 36.2; O2SAT 98
[2025-03-05] MEDS: Ibuprofen 600 MG Tablet PO (15:30)
[2025-03-05 16:55] VITALS: BP 108/74; PULSE 77; RESP 16; TEMP 36.3; O2SAT 100
[2025-03-05] MEDS: SimETHICONE 80 MG Chewable Tablet PO (17:16)
--- NOTE | 2025-03-09 14:40 | CASEMGMT ---
Social Work Assessment Labor and Delivery Unit Patient Address: [place] [address] Phone number: [phone] Date of Referral: 03/04/25 Time of Referral:? [id number] Referred By: Dr. Stark Date of Intervention: ??03/05/25 Time of Intervention:? 1215 Reason for Referral:? hx of anxiety, depression, ppd Sw completed chart review and acknowledges social work consult due to maternal mental health history. Sw presented to bedside and introduced self to mother of baby (RAMIRO- Poly) and father of baby (FOIngrid- Jose). Parents had a visitor in the room and informed sw that it was okay to complete assessment with visitor present. Sw completed psychosocial assessment. History obtained from: medical records, MOB and FOB. Household composition:Currently residing in the home is RAMIRO, PRADEEP, their 1 year old daughter, Layparth and now baby when ready for discharge. Parents deny any housing concerns reporting it is safe and secure. Patient's parent/guardian status:? ?RAMIRO states that she and PRADEEP have known each other since they were in school together. They have now been together for almost eight years and this will be their second child together. No concerns reported of domestic violence or intimate partner violence. Medical History: ?RAMIRO is 24 year old female who is 3, para 1-now 2 following labor and delivery. RAMIRO has had one loss that she does not want discussed with other people/ family members. RAMIRO received routine care during with [facility]. RAMIRO presented to hospital for scheduled repeat on 03/04/25 at 39 weeks gestation. Baby girl, named Cecy Mojica, was born weighing 7lb 2oz with apgars of 9 and 9 at one and five minutes of life, respectfully. RAMIRO is breast feeding and states that it is going well. Baby will be followed by Dr. Bolden for pediatrics. Educational Status:? Both parents graduated from high school and have some college education. No problems with reading, learning or comprehension. Financial Status: PRADEEP is gainfully employed outside of the home, he works for [employer]) and is able to take time off of work for paternity leave. 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 Supplies: All necessary baby supplies obtained, including: car seat, safe sleep space, clothes, diapers and wipes. Childcare/Caregiver(s):? RAMIRO will be the primary caregiver to baby along with PRADEEP when he is not working. Transportation:?? No barriers to transportation, both parents have their drivers license and reliable means of transportation. Programs/Agencies Involved: ???RAMIRO is connected to medical insurance and [facility]. Children Services/Legal Issues:???No prior involvement with Children Services, no issues or concerns today warranting referral to be made. Behavioral Health Issues: ??Mental Health History:?PRADEEP denies mental health history. MOB states that she has been diagnosed with anxiety and was prescribed medication to take but did not take any during . MOB states that now that baby is here if she starts to struggle with her mental health she will talk to her doctor to start on meds. ?? Substance Use History:?Parents deny substance use history prior to and during . ? Family History:?MOB and PRADEEP state that they do not have any family members who struggle with their mental health or have substance use history. ? Drug Screens: No drug screens observed while completing chart review. Family/Social Stressors:? RAMIRO denies any problems, concerns or stressors at this time. Support Systems: RAMIRO states that her aunt, grandma, FOB and friends are her biggest supports along with her family. Depression/Shaken Baby/Safe Sleeping: Regla educated parents on signs and symptoms of baby blues and depression and anxiety. RAMIRO discloses that she did struggle with some symptoms after her first daughter was born, but it was managed with medication for the most part. MOB states that she was anxious during and as a result was prescribed medications to help her manage her symptoms, but she did not feel comfortable taking them while she was . MOB states at this time she does not recognize that she is struggling with any anxiety. Nursing staff have informed regla that mom is anxious at baseline, and it has been evident to them that she is struggling. Regla and MOB discussed healthy and safe coping skills for her to utilize if she starts to feel like she is struggling during this period. MOB reports that she is receptive to starting her medications now that baby has been born. MOB states that if she were to struggle PRADEEP would be abke to recognize that and would know how to help and support her. Regla educated parents on shaken baby prevention and ABCs of safe sleep. Parents express understanding. ASSESSMENT:? MOB and baby admitted following labor and delivery. MOB with history of anxiety and admits to struggling with some anxiety after her first baby was born. MOB and FOB both present in bedside. MOB observed to be holding baby in attentive and loving manner. FOB sitting on couch with friend. FOB and MOB talkative and engaging throughout conversation. MOB acknowledging her mental health and willingness to start back on her medications now that baby is here. MOB and FOB made and maintained eye contact. They express eagerness to go home to be with their other daughter. Parents have all necessary baby supplies and natural supports in place. PLAN:?? No other services requested or indicated. MOB and baby to be discharged when medically ready. Parents were provided literature regarding: signs and symptoms of baby blues and mood and anxiety disorders, Help Me Grow, shaken baby prevention, ABCs of safe sleep and a list of county resources that are available for them should any needs present themselves. Kirti Cole, TEACHER PUBLIC HEALTH, LUMBER STRAIGHTENER
== END 2025-03-05 19:00 | disposition home or self-care (01) | DRG 540 ==
PROVIDERS: Admitting Provider Obstetrics & Gynecology; PCP Internal Medicine; Referring Provider Obstetrics & Gynecology; Visit Provider Obstetrics & Gynecology
PROC: 10D00Z1 Extraction of Products of Conception, Low, Open Approach (ICD-10-PCS; CPT 59514; principal; 2025-03-04 11:45)
DX: O34.219 Maternal care for unspecified type scar from previous cesarean delivery (principal); F41.9 Anxiety disorder, unspecified; O99.824 Streptococcus B carrier state complicating childbirth; Z37.0 Single live birth; Z3A.39 39 weeks gestation of pregnancy; O99.344 Other mental disorders complicating childbirth; O69.81X0 Labor and delivery complicated by cord around neck, without compression, not applicable or unspecified; Z79.899 Other long term (current) drug therapy; Z87.59 Personal history of other complications of pregnancy, childbirth and the puerperium
CPT/HCPCS: 59025; 59050; 85025; 85027; 86780; 86850; 86900; 86901; 99221; A4216; G0378; J1940; J2405

== ENCOUNTER → 2025-04-20 | Outpatient (CLI) | payer MEDICAID, SELFPAY | END | disposition home or self-care (01) | LOC: LABSPEC 15:46 | PROVIDERS: PCP Internal Medicine; Referring Provider Advanced Practice Midwife; Visit Provider Advanced Practice Midwife | DX: N89.8 Other specified noninflammatory disorders of vagina (principal) | CPT/HCPCS: 87070; 87077; 87205 ==